=== PATIENT | female | born 1980 | race Caucasian/White ===

== ENCOUNTER 2017-12-12 08:30 | Outpatient (RCR) | payer OTHER, SELFPAY ==
--- NOTE | 2017-12-12 09:05 | BH.SGPN.GN ---
Behaviors/Verbalizations/Mental Status: [Client maintained fair eye contact -at times looking away, casually dressed, motor activity WNL, speech normal rate and tone though limited input provided, mood anxious, dysthymic, affect constricted, thoughts linear and logical, no evidence of delusions or hallucinations. Therapist reviewed clients symptom tracker to assess for intensity of mental health symptoms and identify risk for suicide. No signs of suicidal ideation, plan, or intent to date.] Client Response/Progress/Benefit: [Client receptive of session and willing to remain attentive throughout. She took on a passive participatory role as this was her first day in the IOP program and she was adjusting to the group treatment environment. Client appeared to benefit from the structured environment and shared experiences in struggling to manage mental health symptoms discussed by fellow participants. CLient indicated struggling most significantly with feeling overwhelmed and as though I just can't handle it all anymore however provided limited input due to it being her first day in the program and indicating feeling uncomfortable with sharing at this time. She is recommended continued IOP tx to prevent decompensation and begin to improve client insight and ability to manage emotions and improve mental health and well-being.] Narrative Note: []
--- NOTE | 2017-12-12 10:25 | BH.SGPN.GN ---
Behaviors/Verbalizations/Mental Status: [] Pt eye contact fair, casually dressed, motor activity appropriate, speech normal rate and tone, mood anxiety and dysthymic, congruent affect, thoughts linear and intact, no evidence of delusions or hallucinations. Client Response/Progress/Benefit: []Pt listened attentively to others and at times contributed her thoughts and ideas. Pt reported she recognizes her belief that she needs to fix everything and everyone often results in increased problems because others won't change unless want to change. Pt shared this belief results in increased agitation and struggles with using healthy coping to deal with her emotions. Pt reported her emotions are impacted by others words and actions, which results in shutting down as her form of coping. Pt seemed to benefit from increased awareness of how her current way of coping impacts her functioning. Pt first day in IOP which could have contributed to limited verbal contributions. Narrative Note: []
--- NOTE | 2017-12-12 11:25 | BH.SGPN.GN ---
Behaviors/Verbalizations/Mental Status: []Pt alert and oriented, casually dressed and groomed. Eye contact fair. Motor activity appropriate. Speech within normal limits. Affect congruent, mood euthymic. Thoughts linear, logical, no signs of hallucinations or delusions Client Response/Progress/Benefit: [] Pt responded well to session, taking notes and contributing. Group discussed the different categories of coping skills which included distraction, emotional release, grounding, self-love, and thought challenging.? Pt participated in creating a coping skills ?menu? from the five categories of coping skills. Pt's coping skill menu included: walking, breathing, self-care, look for evidence against, and wins journal. Appeared to benefit from increasing repertoire of healthy coping skills. Will continue IOP tx to prevent decompensation, challenge distortions, and improve healthy coping.
--- NOTE | 2017-12-12 15:18 | BH.DR.ITP ---
Initial Treatment Plan - Patient Information Visit Information: ADMISSION DATE: 12/12/2017 EXPECTED LOS: 4-6 weeks Diagnoses:: Major depressive disorder F 33.2 - Problems/Symptoms Problem #1:: Depression Symptom:: Sad mood, anhedonia, isolative behavior, crying, biologic disruption of sleep and appetite Problem #2:: anxiety Symptom:: Rumination, difficulty concentrating
--- NOTE | 2017-12-19 09:04 | BH.SGPN.GN ---
Behaviors/Verbalizations/Mental Status: [Client maintained good eye contact, casually and neatly dressed, well groomed, motor activity appropriate, speech normal rate and tone, mood irritable, affect constricted, thoughts linear and logical, no evidence of delusions or hallucinations. Reviewed client?s symptom tracker, no risk for suicidal ideation, plan, or intent as of 12/19/17.] Client Response/Progress/Benefit: [Client receptive of session, attentive throughout, provided limited input during personal process potion though providing supportive feedback to fellow participants. Indicated that his emotion for the day is annoyed as Client discussed ongoing issues with her family not respecting client boundaries and asking her to do things or for money. Client discussed guilt as she wants her great nieces to be well cared for but is agitated that her boundaries are not being adhered to. Client benefitted from venting with the group and suggestions provided regarding ways she may reinforce her boundaries while also communicating concern for great nieces. Client progress limited as she continues to report issues with mood dysregulation and negative thinking impacting her mental health. Continued IOP tx recommended to improve emotion regulation and use of thought challenge skills. ] Narrative Note: []
--- NOTE | 2017-12-21 08:16 | BH.MDN ---
Multi-Disciplinary Note - Note 45-min Individual Time Started:: 12:27 Date: 12/12/17 Purpose of session/treatment goals addressed:: Purpose of today's session was to establish rapport and assess Client adjustment to group setting as she is new to [facility] program. Another purpose was to gather additional information from the client about functioning and symptoms. Other topics including developing treatment goals and his progress in the program. Eye Contact:: Good Motor Activity:: Restless - moving a lot in her seat and speaking with multiple hand gestures. Appearance:: Casual Mood:: Anxious, Irritable, Dysthymic Affect:: Full Thoughts:: Linear, Logical, No evidence of hallucinations/delusions noted Staff Interventions:: Therapist used open ended questions to gather client's symptoms, current stressors, as well as hx of mental health treatment. Worked with client to explore treatment goals to address in [facility]. Client Response:: Client responded well to session and was engaged throughout. She openly discussed thoughts, feelings, and opinions with this therapist. CLient new to [facility] program and appears to be adjusting well. She indicated that her first day in the group setting had been a little overwhelming as she does not usually feel comfortable speaking in the larger group setting. However, went on to express that as she got used to the dynamics of the group she began to feel more comfortable. CLient current symptoms and stressors, as well as the events leading up to her admission to the IOP program. Client discussed that she has felt as though she is under constant stress which is beginning to impact her daily functioning, causing increased irritability, decreased focus, as well as some relationship tension. Client further explained a recent misunderstanding between her and her sister's which has put CLient in the middle. She Client indicated wanting to support her in this regard however fears she will then be unable to watch her great niece and nephew. Client identified watching her niece's children is really important to her as client has been struggling with infertility issues for the past year and is having a hard time dealing with the potential thought that she may be unable to have any children of her own. Client reports that she has found herself growing increasingly resentful towards the situation and is experiencing difficulties in managing her anger as a result. Client shared feeling as though she has lost myself and is finding herself isolating and shutting down more often. Client did well to work with therapist on identifying her goals and reviewing expectations for the treatment program. CLient indicates a desire to improve her ability to cope with current stressors, better manage her emotions, and set healthier boundaries with her supports. Risks/Concerns:: No risks or concerns noted. Denies any active sucidal ideations, plan, or intent as of 12/12/17. Client indicates her family as major motivations to live. Client indicates ability to maintain safety, aware of crisis resources, and willing to reach out should she feel unable to maintain safety. Progress Toward Goals/Plan:: Limited progress as Client first week in the program. Client indicates feeling as though she new she needed help and is glad to be in the program. Client indicates wanting to include improve healthy coping skills to better manage her emotions, improve communication and boundaries with supports, as well as increase her ability to manage stressors. Plan is to remain in IOP tx to prevent decompensation, stabilize mood, and improve levels of insight into mental health and symptom management. Time Stopped:: 13:07
--- NOTE | 2017-12-21 09:24 | BH.MDN_ITS ---
Multi-Disciplinary Note - Note 45-min Individual Time Started:: 12:27 Date: 12/12/17 Purpose of session/treatment goals addressed:: Purpose of today's session was to establish rapport and assess Client adjustment to group setting as she is new to [facility] program. Another purpose was to gather additional information from the client about functioning and symptoms. Other topics including developing treatment goals and his progress in the program. Eye Contact:: Good Motor Activity:: Restless - moving a lot in her seat and speaking with multiple hand gestures. Appearance:: Casual Mood:: Anxious, Irritable, Dysthymic Affect:: Full Thoughts:: Linear, Logical, No evidence of hallucinations/delusions noted Staff Interventions:: Therapist used open ended questions to gather client's symptoms, current stressors, as well as hx of mental health treatment. Worked with client to explore treatment goals to address in [facility]. Client Response:: Client responded well to session and was engaged throughout. She openly discussed thoughts, feelings, and opinions with this therapist. CLient new to [facility] program and appears to be adjusting well. She indicated that her first day in the group setting had been a little overwhelming as she does not usually feel comfortable speaking in the larger group setting. However, went on to express that as she got used to the dynamics of the group she began to feel more comfortable. CLient current symptoms and stressors, as well as the events leading up to her admission to the IOP program. Client discussed that she has felt as though she is under constant stress which is beginning to impact her daily functioning, causing increased irritability, decreased focus, as well as some relationship tension. Client further explained a recent misunderstanding between her and her sister's which has put CLient in the middle. She Client indicated wanting to support her in this regard however fears she will then be unable to watch her great niece and nephew. Client identified watching her niece's children is really important to her as client has been struggling with infertility issues for the past year and is having a hard time dealing with the potential thought that she may be unable to have any children of her own. Client reports that she has found herself growing increasingly resentful towards the situation and is experiencing difficulties in managing her anger as a result. Client shared feeling as though she has lost myself and is finding herself isolating and shutting down more often. Client did well to work with therapist on identifying her goals and reviewing expectations for the treatment program. CLient indicates a desire to improve her ability to cope with current stressors, better manage her emotions, and set healthier boundaries with her supports. Risks/Concerns:: No risks or concerns noted. Denies any active sucidal ideations , plan, or intent as of 12/12/17. Client indicates her family as major motivations to live. Client indicates ability to maintain safety, aware of crisis resources, and willing to reach out should she feel unable to maintain safety. Progress Toward Goals/Plan:: Limited progress as Client first week in the program. Client indicates feeling as though she new she ?needed help? and is glad to be in the program. Client indicates wanting to include improve healthy coping skills to better manage her emotions, improve communication and boundaries with supports, as well as increase her ability to manage stressors. Plan is to remain in IOP tx to prevent decompensation, stabilize mood, and improve levels of insight into mental health and symptom management. Time Stopped:: 13:07
== END 2017-12-12 23:59 ==
LOC: BHIOP 08:30
PROVIDERS: Family Provider Internal Medicine; PCP Internal Medicine; Visit Provider Psychiatry & Neurology Psychiatry
DX: F33.2 Major depressive disorder, recurrent severe without psychotic features (principal); F41.9 Anxiety disorder, unspecified
CPT/HCPCS: H0035; 90834; 90853

== ENCOUNTER 2017-12-14 09:00 | Outpatient (RCR) | payer OTHER, SELFPAY ==
--- NOTE | 2017-12-14 09:03 | BH.SGPN.GN ---
Behaviors/Verbalizations/Mental Status: []Pt alert and oriented. Casually dressed and appropriately groomed. Mood euthymic, affect congruent. Speech tone and rate WNL. Thoughts linear and logical. Motor activity appropriate. No evidence of delusions or hallucinations. Reviewed clients symptom tracker, no risk for suicidal ideation, plan, or intent as of 12/14/17. Client Response/Progress/Benefit: []Pt reported Monday I blew up at my 's brother, shared I lost it. Pt shared she needs to work on not allowing others behaviors and words impact her so much. Recognizes she tries to fix others, but needs to remember she needs to focus on herself and what is in her control. Progress noted with pt's increased insight into how her reactions negatively impact her. Pt to continue IOP level of care to improve mood stability, decrease agitation, and prevent decompensation. Narrative Note: []
--- NOTE | 2017-12-14 10:07 | BH.SGPN.GN ---
Behaviors/Verbalizations/Mental Status: []Client alert and oriented, neatly dressed and groomed. Eye contact good. Motor activity appropriate. Speech within normal limits. Affect full, mood euthymic, anxious. Thoughts linear, logical, no signs of hallucinations or delusions. Client Response/Progress/Benefit: []Client responded well to session, participating when prompted. Client connected with the quote sharing, I doubt myself which keeps me from doing things. Client defined failure as not meeting her expectations, which client shared can be unrealistic at times. Client stated fear of failure can come from cognitive distortions and insecurities. Client reported if one does not overcome fear of failure it can lead to increased mental health symptoms and keep a person stuck in negative maintenance cycles. 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 Client connected the activity to failures in life, sharing its okay to fail sometimes. Client appeared to benefit from increasing awareness of how fear of failure impacts mental health as well as gaining awareness of the negative self-talk she uses that reinforces fear of failure. Client seems to be progressing as shown by clients increased awareness. Client to continue IOP to increase emotional regulation and reduce mental health symptoms.
--- NOTE | 2017-12-14 11:15 | BH.SGPN.GN ---
Behaviors/Verbalizations/Mental Status: []Client alert and oriented, neatly dressed and groomed. Eye contact good. Motor activity appropriate. Speech within normal limits. Affect congruent, mood anxious. Thoughts linear, logical, no signs of hallucinations or delusions. Client Response/Progress/Benefit: []Client responded well to session, providing good insight to discussion. Client shared fear of failure has impacted client because client remembers past failures and then when faced with change feels scared and doubts herself. Client reported group today helped client realize the importance of self-encouragement and challenging self-doubting thoughts. Client shared fear of failure keeps her from returning to school as client views it scary and starting over. Client helped the group identify strategies to overcome fear of failure such as challenging distorted thoughts, being self-compassionate, and reaching out to supports. Client set a personal goal to reduce fear of failure through challenging her self-doubt and focusing on her positive achievements instead. Client appeared to benefit from gaining strategies to overcome fear of failure. Client seems to be progressing as shown by her increased participation and self-reflection in group. Client to continue IOP to increase mood stability and reduce negative thinking.
--- NOTE | 2017-12-15 10:41 | BH.NA_ITS ---
Current Medication Compliance - Medication Compliance Do you take your medication as prescribed?: Yes Do you need assistance with taking medication?: No Have you had side effects from medication?: No Nutritional History - Appetite Nutritional Instructions:: If client shows signs of a swallowing problem, weight change of 10 pounds or more in the last month, or is on a diabetic diet, the physician will review and request a dietitian consult, as appropriate. All unintentional weight loss will be referred to the physician for decision on need for dietitian consult. Describe your appetite:: Fair Have you noticed a change in your eating habits lately?: Yes - decreased since starting on Wellbutrin, but usually up w/ depressive sx Functional Assessment - Activities Motor Activity:: Functional Sensory/Communication Assess - Vision Problems Do you have any vision problems?: Glasses - Hearing Problems Do you have any hearing problems?: Adequate - Communication Problems Do you have difficulty understanding what people are saying?: No Do you have trouble putting your thoughts into words or expressing what you want to say?: No Do people ever have trouble understanding what you say?: No What is your primary language?: [place] Learning Assessment - Education What is your level of education?: Some College - Learning Barriers Learning Barriers:: Ready to learn Medical Problems/History - Cardiac Conditions Cardiovascular: Other (See comments) - mitral valve prolapse - Genitourinary Conditions Genitourinary: Other (See comments) - polycystic ovarian syndrome - Pain Assessment Do you have acute or chronic pain?: No - Female Reproductive Do you think you may be ?: No Number of pregnancies:: 0 Number of children:: 0 Have you reached menopause?: No Do you have any history of breast disease?: No Mental Status Summary - Mental Status Significant Findings/Observations on Appearance and Mood:: Client is A&Ox4, cooperative, good hygiene, and casual dress. Normal activity, good eye contact. Speech is clear and of regular rate and volume. Mild depression, anxiety, and anger. Full affect. Logical associations. Normal process. No symptoms of delusions. Past Psychiatric History - MH Treatment Hx Describe (age, circumstance, etc) any past hospitalizations: N/A Current providers for mental health treatment (counselor, psychiatrist, welfare case worker , etc.): Has never had any mental health treatment. Fall Risk Assessment - Age Age: Less than 60 - Mental Status Mental Status: Willing & able to ask for assistance when needed - Physical Status Physical Status: No problems - Impairments Impairments: None - Elimination Elimination: Continent AND independent - Gait or Balance Gait or Balance: Walks independently - Hx of Falls History of falls in the past 6 months: No known history - Medications/Substances Psychotropics:: Antidepressants Medications/substances used within the past 24 hours or ordered to administer: 1 -2 of the medications/substances listed above - Total Score Total Points:: 1 RN Summary of Impressions - Impressions Recommendations: Include psychiatric and medical issues, treatment planning recommendations, and discharge planning needs. Impressions: Psychiatric Issues: MDD, anxiety Impression: General Medical Conditions: PCOS, mitral valve prolapse - Level of Care How do the client's current symptoms and functional deficits support need for this level of care?: Client endorses inability to concentrate and memory problems that are interfering with her performing her work duties, which has caused her to have to take a medical leave. She describes multiple stressors with both her family and her 's family. She verbalizes anger and grief regarding her infertility. Client has been isolating from friends and family, wanting to not spend time with anyone other than her . She finds no pleasure or enjoyment in anything, has little motivation, and feels hopeless and frustrated. IOP will provide socialization, support, and promote gains while preventing further decompensation.
--- NOTE | 2017-12-15 11:27 | BH.SGPN.GN ---
Behaviors/Verbalizations/Mental Status: [Client alert and orient x3, maintained consistent eye contact throughout, casually dressed, motor activity within normal range. Speech appropriate rate and tone, mood dysthymic and anxious, congruent affect, thoughts linear and logical, no evidence of delusions or hallucinations.] Client Response/Progress/Benefit: [Positively responded to session and willing to engage throughout. CLient identified breaking larger goals down into smaller goals with concrete guidelines as helpful. Client went on to explain that she often becomes overwhelmed with large goals as they begin to feel unattainable. She appeared to benefit from working in smaller groups on identifying individual SMART goals each participant may utilize this weekend in order to begin improving overall mental health. Client expressed plans to work on decreasing anger outbursts by attempting to take a breath or walk away when feeling agitated. CLient displaying progress in overall levels of insight and indicated believing that this goal would help to decrease her anxiety and begin to improve her relationship with her . CLient recommended continued IOP tx to improve insight and understanding of mental health symptoms and management strategies as well as improve emotional stability.] Narrative Note: []
--- NOTE | 2017-12-15 13:23 | PCM.HP.BLA ---
History and Physical Identifying information Patient is a 37-year-old female who presents to the behavioral medicine [facility] with chief complaint of depression and anxiety and family stress.'' I internalize everything. History is been obtained per interview with patient, discussion with staff, review of chart. Case discussed with treatment team. History of present illness Patient is a 37-year-old female referred to the behavioral medicine [facility] by primary care physician Dr. Ortega for evaluation and treatment of depression and anxiety. Patient reports symptoms have been worse over the past 6 months are interfering with work functioning. She is currently on FMLA. She identifies recent stressors including infertility, family discord, and dynamics with her who has rigid thinking. She endorses depressed mood with feelings of sadness, crying spells, anhedonia, decreased energy, and difficulty concentrating. She reports associated irritability and anger. Ruminative anxiety about multiple issues. Reports difficulty making decisions. Denies panic attacks or OCD. Reports increased sleep. Sleeping from 11 PM to 8 AM. Napping 1 hour daily. Acknowledges emotional eating. Lost 80 pounds in 3 months with the assistance of [employer]ipe[employer]. Denies anorexia or bulimia. No suicidal or homicidal ideation. No previous self-harm. No hallucinations or symptoms consistent with psychosis. No symptoms consistent with hemalatha. Past psychiatric history Previously diagnosed with depression and anxiety. Treated with Prozac by her primary care physician in her mid 20s. Reports that she has been on Prozac since her mid 20s with the exception of a 2 year period of abstinence when she was undergoing infertility treatment. Resume Prozac year and a half ago. No previous suicide attempts or self-harm behaviors. Denies previous psychiatric hospitalization. Does not have a current psychiatrist or counselor. Substance use history Denies smoking cigarettes Consumes 2 alcoholic drinks once per year. Admits to binge drinking in her mid 20s to the point of blacking out. Denies illicit drug use Denies caffeine ingestion Past medical history Migraines Cervical fusion Tachycardia-status post EP study PCO S Denies seizure or head injury [id number] Current medications Prozac 20 mg daily Wellbutrin-? XL 150 mg?-Started last week Toprol Aldactone Benadryl as needed nightly Family medical psychiatric history Mother-anxiety Maternal aunt-depression Maternal cousin-schizophrenia Nephew-anxiety Knees-bipolar Paternal aunt completed suicide by insulin overdose 3 paternal aunts and 1 paternal uncle with depression Developmental social history Patient was born and raised in [place]. Youngest of 2 children. 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 States she had a wonderful childhood. Father was rigid. Graduated high school. 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 2 years college at [employer]. 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 Lives in [place] with and dogs. Legal history-none Mental status exam Vital signs discussed with nursing Alert and oriented . No acute distress. Ambulatory with normal gait and station. Appears stated age. Casually dressed and groomed. Appropriate hygiene. Cooperative with interview. Good eye contact. No psychomotor agitation or retardation. Mood depressed. Affect congruent. Speech is clear and with regular rate and rhythm. Language fluent. Thought process organized. Associations logical. Thought content significant for ruminative anxiety and themes of depression. No suicidal or homicidal ideation related or detected.. No symptoms consistent with psychosis noted or detected. Immediate recent and remote memory grossly intact. Attention and concentration are fair. Estimated intelligence and fund of knowledge average. Judgment and insight fair. Labs Lab work will be requested from primary care physician. Patient reports TSH within last year normal. Further lab work will be obtained as needed. Diagnosis Major depressive disorder recurrent severe F 33.2 Anxiety unspecified Tachycardia PCO S Migraines Plan Admit to IOP as the structured setting is necessary to prevent decompensation. Risk-benefit alternative of medications discussed with patient. Patient acknowledges understanding. Continue Prozac 20 mg daily. Continue Wellbutrin XL 150 mg daily. Patient acknowledges understanding of risks of increased tachycardia with Wellbutrin. Patient reports she is currently tolerating Wellbutrin without difficulty. Denies history of seizure. Feels Wellbutrin is helpful for appetite reduction. Encouraged to establish with outpatient psychiatric providers for when IOP complete. Patient acknowledges understanding and is in agreement with plan. Feels able to maintain safety. Agrees to seek help or emergency care if feeling unsafe to self or others.
--- NOTE | 2017-12-15 13:37 | HP.PCM_ITS ---
History and Physical Identifying information Patient is a 37-year-old female who presents to the behavioral medicine [facility] with chief complaint of depression and anxiety and family stress.'' I internalize everything. History is been obtained per interview with patient, discussion with staff, review of chart. Case discussed with treatment team. History of present illness Patient is a 37-year-old female referred to the behavioral medicine [facility] by primary care physician Dr. Ortega for evaluation and treatment of depression and anxiety. Patient reports symptoms have been worse over the past 6 months are interfering with work functioning. She is currently on FMLA. She identifies recent stressors including infertility, family discord, and dynamics with her who has rigid thinking. She endorses depressed mood with feelings of sadness, crying spells, anhedonia, decreased energy, and difficulty concentrating. She reports associated irritability and anger. Ruminative anxiety about multiple issues. Reports difficulty making decisions. Denies panic attacks or OCD. Reports increased sleep. Sleeping from 11 PM to 8 AM. Napping 1 hour daily. Acknowledges emotional eating. Lost 80 pounds in 3 months with the assistance of [employer]. Denies anorexia or bulimia. No suicidal or homicidal ideation. No previous self-harm. No hallucinations or symptoms consistent with psychosis. No symptoms consistent with hemalatha. Past psychiatric history Previously diagnosed with depression and anxiety. Treated with Prozac by her primary care physician in her mid 20s. Reports that she has been on Prozac since her mid 20s with the exception of a 2 year period of abstinence when she was undergoing infertility treatment. Resume Prozac year and a half ago. No previous suicide attempts or self-harm behaviors. Denies previous psychiatric hospitalization. Does not have a current psychiatrist or counselor. Substance use history Denies smoking cigarettes Consumes 2 alcoholic drinks once per year. Admits to binge drinking in her mid 20s to the point of blacking out. Denies illicit drug use Denies caffeine ingestion Past medical history Migraines Cervical fusion Tachycardia-status post EP study PCO S Denies seizure or head injury [id number] Current medications Prozac 20 mg daily Wellbutrin-? XL 150 mg?-Started last week Toprol Aldactone Benadryl as needed nightly Family medical psychiatric history Mother-anxiety Maternal aunt-depression Maternal cousin-schizophrenia Nephew-anxiety Knees-bipolar Paternal aunt completed suicide by insulin overdose 3 paternal aunts and 1 paternal uncle with depression Developmental social history Patient was born and raised in [place]. Youngest of 2 children. 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 States she had a wonderful childhood. Father was rigid. Graduated high school. 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 2 years college at [employer]. 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 Lives in [place] with and dogs. Legal history-none Mental status exam Vital signs discussed with nursing Alert and oriented . No acute distress. Ambulatory with normal gait and station. Appears stated age. Casually dressed and groomed. Appropriate hygiene. Cooperative with interview. Good eye contact. No psychomotor agitation or retardation. Mood depressed. Affect congruent. Speech is clear and with regular rate and rhythm. Language fluent. Thought process organized. Associations logical. Thought content significant for ruminative anxiety and themes of depression. No suicidal or homicidal ideation related or detected.. No symptoms consistent with psychosis noted or detected. Immediate recent and remote memory grossly intact. Attention and concentration are fair. Estimated intelligence and fund of knowledge average. Judgment and insight fair. Labs Lab work will be requested from primary care physician. Patient reports TSH within last year normal. Further lab work will be obtained as needed. Diagnosis Major depressive disorder recurrent severe F 33.2 Anxiety unspecified Tachycardia PCO S Migraines Plan Admit to IOP as the structured setting is necessary to prevent decompensation. Risk-benefit alternative of medications discussed with patient. Patient acknowledges understanding. Continue Prozac 20 mg daily. Continue Wellbutrin XL 150 mg daily. Patient acknowledges understanding of risks of increased tachycardia with Wellbutrin. Patient reports she is currently tolerating Wellbutrin without difficulty. Denies history of seizure. Feels Wellbutrin is helpful for appetite reduction. Encouraged to establish with outpatient psychiatric providers for when IOP complete. Patient acknowledges understanding and is in agreement with plan. Feels able to maintain safety. Agrees to seek help or emergency care if feeling unsafe to self or others.
--- NOTE | 2017-12-15 13:39 | BH.DR.ITP ---
Initial Treatment Plan - Patient Information Visit Information: ADMISSION DATE: EXPECTED LOS: 4-6 weeks Diagnoses:: Major depressive disorder F 33.2 - Problems/Symptoms Problem #1:: Depression Symptom:: Sad mood, anhedonia, isolative behavior, crying, biologic disruption of sleep and appetite Problem #2:: anxiety Symptom:: Rumination, difficulty concentrating
--- NOTE | 2017-12-15 14:38 | BH.PSA ---
Source of Information - Presenting Problems/Circumstances Problems, Referral Source, Mental Status, Client: Client is a 37-year-old female referred to the behavioral medicine [facility] by primary care physician Dr. Ortega due to increased symptoms of anxiety and depression due to increased familial and occupational stressors. CLient alert and orient x3, appropriate grooming and hygiene, no SI/HI plan or intent expressed. CLient receptive of interview. Thoughts appearing linear and logical. Psychiatric Presentation - Psych Issues & Need for Admission Psychiatric Issues:: Major depressive disorder recurrent severe F 33.2, Anxiety unspecified, Tachycardia, PCOS, Migraines Past Psychiatric History - Treatment Hx Treatment History: Client denies previous counseling or psychiatry services. She reports being diagnosed with anxiety and depression in her 20's. She has been treated with Prozac since her mid 20s with the exception of a 2 year period of abstinence when she was undergoing infertility treatment. Resume Prozac year and a half ago. Client denies previous psychiatric hospitalization or suicidal ideation. She does not have a current outpatient psychiatrist or counselor at this time. First hospitalization:: Denies Most recent hospitalization:: Denies Medication Trials:: No ECT Therapy:: No Age of first mental health symptoms: Client reports first experiencing mental health symptoms of anxiety and depression in her early 20's. Describe (age, circumstance, etc) any past hospitalizations: Denies past psychiatric hospitalization. Current providers for mental health treatment (counselor, psychiatrist, behavioral health case manager, etc.): Client denies any current outpatient counseling or psychiatry at this time. CLient will be referred for outpatient services prior to discharge. Development & Family of Origin - Childhood Significant Childhood Events: Client describes her childhood at wonderful however indicates that her father could be very strict or rigid about his expectations which created some emotional distance from him growing up. - Family Who currently lives in your home?: Client lives in her own home with her and two dogs. Describe family composition:: Client is the youngest of 2 children. She has an older sister whom she reports is toxic and uses me for everything. Client indicates being close with her mother and getting along with her father. Client reports relationship tension with her as she describes him as rigid and not understanding of her mental health needs. - Family History Family Hx of Psychiatric or AOD Problems: Mother-anxiety. Maternal aunt-depression. Maternal cousin-schizophrenia. Nephew-anxiety. Niece-bipolar. Paternal aunt completed suicide by insulin overdose. 3 paternal aunts and 1 paternal uncle with depression Ethnicity - Culture Do you identify yourself with any particular cultural, ethnic background, or community?: No - Sexuality Sexual Orientation: Heterosexual Spirituality - Amish Do you currently identify with any organized mormon?: None - Beliefs Is there a particular form of support from this community you can use for your recovery?: No Mental Status - Memory Recent Memory: Good Remote Memory: Good - Concentration Concentration: Good - Eye Contact Eye Contact: Good - Speech Speech: Articulate, Congruent - Thought Process Thought Process: Logical Insight: Fair Judgment: Fair Behavior: Anxious - Orientation Orientation: Time, Person, Place, Situation - Appearance Appearance: Appropriate - Mood Mood: Anxious, Depressed - Affect Affect: Appropriate/calm Suicide Assessment - Suicidal Ideation Have you ever felt like hurting yourself?: No Were you using ETOH/drugs at the time?: No Suicidal Intentional Rating Scale (SIRS): No suicidal thoughts (past or present) Physician Notification: If Active suicidal thoughts/Will not contract for safety is checked, contact physician and document in the Physician Notification section below. Violent Behavior/Abuse History - Homicidal Ideation Do you have any homicidal thoughts? If so, explain:: No Is there a known potential victim? If yes, who:: No - Abuse Have you ever been abused?: No Please explain:: Client reports father was rigid and emotionally distant growing up but denies any abuse. - Life Events Are there any other significant life events?: Hardships - Client struggling with infertility which has had significant impact on mental health Describe significant life events: infertility, increased caregiver responsibilities for aging parents - Safety Do you ever feel threatened in your home? If yes, describe:: No Adult Social History - Age 18 to Present Describe your current support system:: Client identifies current supports as her , mother, and sister; however, reports that these supports can also be stressors due to unhealthy boundaries and poor communication. Substance Use - Substance Substance Use Type: Alcohol - Consumes 2 alcoholic drinks once per year. Admits to binge drinking in her mid 20s to the point of blacking out. - Specific Drugs What specific drugs have you used?: Alcohol - Extent of Use What quantity of substances have you used?: Consumes 2 alcoholic drinks once per year. Admits to binge drinking in her mid 20s to the point of blacking out. - Duration of Use How long have you used substances?: Reports she began drinking in early 20's and currently drinks ~2 alcoholic beverages twice a year. - Last Usage What is the date and situation you last used?: Unknown. Client did not report last known use. - IV Substance Use Do you have a history of IV use?: Denies Leisure/Social Activities - Interests What do you enjoy or might be interested in learning about?: Client reports enjoying spending time with her great nieces and being outdoors. She additionally indicates enjoying reading. CLient identifies wanting too learn how to better manage symptoms of irritability and anxiety in order to improve overall mental health and functioning. 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 List any previous volunteering you may have done:: None reported Service - Service Have you ever been in the ?: No Legal History - Records Have you had any past legal charges?: No Do you have any current legal charges?: No Have you ever been incarcerated? If yes, describe:: No - Court Orders Have you had any past court orders for psychiatric treatment?: No Do you have a present court order for psychiatric treatment?: No Problem Checklist - Current Problem Areas Problem List: Nutritional/Eating pattern changes - reports emotional eating and recently lost 80 pounds in three months with the assistance of [employer]., Pain management - associated with chronic back pain, Depressed mood/sad, Anxiety, Anger/aggression, Sleep problems - increased stress, Pertinent health issues - infertility, Additional psychosocial stressors - Reports increased familial conflict Discharge Planning Needs - Anticipated Follow-Up Private Therapist/Psychiatrist:: Will be referred to outpatient counseling services prior to discharge Primary Care Physician: Trinidad Antunez Family and Caregiver Contacts:: Angy Miller, Sister -[phone] Release of Information Signed:: Yes Assistant Professor Of Archaeology's Assessment - Client's Needs What are the client's feelings about the program?: Client reports looking forward to gaining skills to improve ability to manage symptoms of irritability and depression through IOP program. She indicates looking forward to the group experience and connecting with fellow participants who may be experiencing similar symptoms. What are the client's goals?: Client reports current goal of improving management of mental health symptoms of depression, anxiety, and irritability by increase use of health coping mechanisms, improving communication, and setting healthy boundaries. What are the client's strengths?: Client appears motivated to improve mental health symptpms and make progress in treatment, she is resilient, intelligent, and open to trying new means of coping with current symptoms Diagnoses - Diagnoses Diagnosis #1:: Major Depressive Disorder F33.2 Diagnosis #2:: Anxiety, unspecified Diagnosis #3:: PCOS Diagnosis #4:: Migraines Interpretive Summary - Interpretive Summary Interpretive Summary: Client is a 37-year-old female referred to the behavioral medicine IOP by primary care physician Dr. Ortega due to increased symptoms of anxiety and depression. Client reports symptoms have been worsening over the past 6 months resulting in decreased ability to function at baseline and difficulties completing occupational duties. Client currently on FMLA from work. Client attributes increased symptoms stemming from recent stressors including infertility, family discord, and relationship discord with her who she reports has rigid thinking. At time of intake client is endorsing a depressed mood with feelings of sadness, crying spells, anhedonia, decreased energy, and difficulty concentrating. She reports secondary emotions associated including irritability and anger, as well as ruminative anxiety about multiple issues, and difficulty making decisions. Client additionally indicates increased sleep and emotional eating to cope. Client reports a family history of depression, anxiety, bipolr, and schitzophrenia. Denies HI or psychosis. Denies previous or current SI. No hx of attempts Based on worsening depression and anxiety sx, increased familial tension, psychosocial and occupational stressors, decreased functioning at baseline, and isolative behaviors she is recommended [facility] level of care at this time. Treatment Plan Recommendations - Recommendations Guidelines: Special needs identified to be included in the development of an individualized treatment plan regarding past psychiatric history and treatment, developmental events, family relationships/events/culture, past and/or current educational, occupational, social, and residential experience, and legal status. Recommendations:: Based on worsening depression and anxiety sx, increased familial tension, psychosocial and occupational stressors, decreased functioning at baseline, and isolative behaviors she is recommended [facility] level of care at this time. To be referred to outpatient counseling and psychiatry services prior to discharge.
--- NOTE | 2017-12-15 14:46 | BH.MTP ---
Master Treatment Plan - Patient Information Program Physician:: Sharmin Lovett Primary Therapist:: Rut Oseguera - Psychiatric Diagnoses Psychiatric Diagnoses:: Major depressive disorder recurrent severe F 33.2. Anxiety unspecified. Tachycardia. PCO S. Migraines Diagnosis Code(s):: F 33.2 - Estimated LOS Estimated LOS (in weeks):: 6 Problem/Goal #1 - Problem/Goal #1 Stated Goal:: Client will decrease depressive symptoms, uncontrolled crying, isolation, irritability, and anhedonia due to Major Depressive Disorder through Intensive Outpatient Program and as evidenced by a reduction of Client scores in the depression portions of DSM-5 Cross Cutting Depression Inventory. Description of Barriers: Client identifies that her major stressor and potential barrier in managing mental health sx is poor emotional boundaries with her family and outside supports. She identified additional psychosocial stressors potentially impacting her treatment progress as difficulty in regulating her emotions -specifically that of anger and irritability, taking on too many responsibilities caregiving for great niece and nephew as well as her parents at times, struggling to cope with possible infertility causing jealousy/resentment, lack of understanding from supports, and ongoing conflict/tension between various members of the family. Client does however appear to have good insight into warning signs and triggers as well as what strategies may potentially be helpful such as improving boundaries and communication however struggles with implementation of such. Functional Impact: At admission, client reported a history of depression, anxiety, and difficulty managing emotions, with symptoms worsening over the past six months following a failed Clomid trial. Client reports current symptoms have led client to experience difficulties in concentrating, increased crying spells, increased sleeping, feeling overwhelmed, isolation, rumination, irritability, increased appetite. Client indicates current difficulties in function at baseline have resulted in ongoing relationship tension with her as well as her extended family and led Client to take FMLA from her current job. Client also reported ongoing stressors of infertility, porous boundaries, and caregiver burnout associated with watching her nieces children. Client endorses numerous distorted thinking patterns associated with personalization and use of unrealistic expectations of self and others, as well as rumination and increased negative self-talk. Goal Relevant Strengths/Supports: Client is independent, aware of her wants and needs for treatment, resilient, intelligent, and appears highly motivated to make changes to benefit her mental health. She presents with an understanding of some of her own triggers, and unhealthy means of emotional management. Client reports her can be a positive mental health support but that she also has supportive friends in the area. Client is medication compliant and reports being health conscious. 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 - Objectives Objective #1 Stated Objective: Client will identify and replace 2-3 negative thinking patterns that mediate feelings of negative self-worth, sadness, and negative core beliefs to reduce depressive symptoms as shown by a reduced score in section I of the DSM-5 cross-cutting measure. Interventions: Therapist will work collaboratively client in improving awareness of the messages and negative self-talk that reinforce depressive or resentful thinking. Therapist will also assist client in challenging, reframing, and replacing negative thinking patterns. Therapist will provide psychoeducation on depression and help client increase awareness of warning signs and triggers. Discharge Criteria: Client will have achieved this goal when can identify at least 2 negative thinking patterns, replace negative thinking with more positive, affirmative messages and shown a reduction in DSM-5 cross-cutting symptom measure score. Target Date: 01/23/18 Review Date: 01/09/18 Objective #2 Stated Objective: Client will identify 2-3 triggers and 2-3 new ways to navigate stressful situations or manage negative thoughts caused by depression often resulting in secondary emotion of irritability and leading to emotional outburst. This is evidenced by a reduction of DSM-5 cross cutting symptom measure scores. Interventions: Therapist will provide psychoeducation regarding depression and the connection between depression and secondary emotions such as irritability. Therapist will use motivational interviewing to aide client in identifying healthy coping mechanisms to use during times of increased stress and depressive symptoms in order to improve overall emotion regulation and decrease irritability. Discharge Criteria: Client will have accomplished this goal when she can report at least 2 triggers for irritability, as well as identify improved emotion regulation through use of at least 2 calming strategies or distress tolerance skills. Target Date: 01/23/18 Review Date: 01/09/18 Problem/Goal #2 - Problem/Goal #2 Stated Goal:: Client will decrease ruminating thoughts which cause anxiety and difficulties with concentrating as evidenced by a reduction of Client scores in the anxiety and irritability portions of DSM-5 Cross Cutting Depression Inventory. Description of Barriers: Client identifies that her major stressor and potential barrier in managing mental health sx is poor emotional boundaries with her family and outside supports. She identified additional psychosocial stressors potentially impacting her treatment progress as difficulty in regulating her emotions -specifically that of anger and irritability, taking on too many responsibilities caregiving for great niece and nephew as well as her parents at times, struggling to cope with possible infertility causing jealousy/resentment, lack of understanding from supports, and ongoing conflict/tension between various members of the family. Client does however appear to have good insight into warning signs and triggers as well as what strategies may potentially be helpful such as improving boundaries and communication however struggles with implementation of such. Functional Impact: At admission, client reported a history of depression, anxiety, and difficulty managing emotions, with symptoms worsening over the past six months following a failed Clomid trial. Client reports current symptoms have led client to experience difficulties in concentrating, increased crying spells, increased sleeping, feeling overwhelmed, isolation, rumination, irritability, increased appetite. Client indicates current difficulties in function at baseline have resulted in ongoing relationship tension with her as well as her extended family and led Client to take FMLA from her current job. Client also reported ongoing stressors of infertility, porous boundaries, and caregiver burnout associated with watching her nieces children. Client endorses numerous distorted thinking patterns associated with personalization and use of unrealistic expectations of self and others, as well as rumination and increased negative self-talk. Goal Relevant Strengths/Supports: Client is independent, aware of her wants and needs for treatment, resilient, intelligent, and appears highly motivated to make changes to benefit her mental health. She presents with an understanding of some of her own triggers, and unhealthy means of emotional management. Client reports her can be a positive mental health support but that she also has supportive friends in the area. Client is medication compliant and reports being health conscious. 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 - Objectives Objective #1 Stated Objective: Client will identify 2-3 cognitive distortions or mistaken beliefs that lead to rumination and learn 2-3 ways to manage these thoughts to reduce anxiety as evidenced by a reduction of DSM-5 cross cutting symptom measure scores. Interventions: Therapist will provide psychoeducation on cognitive distortions and the connection between thoughts, emotions, and feelings. Therapist will aid client in identifying, challenging, and replacing unhelpful or distorted thoughts with positive, more realistic thoughts. Therapist will use CBT and DBT techniques to help client gain awareness of thinking errors and learn how to more effectively manage negative thoughts. Discharge Criteria: Client will have accomplished this goal when can identify at least 2 cognitive distortions and at least 2 coping skills to manage negative thoughts. Client will also be able to report a reduction of anxiety symptoms in section IV on the DSM-5 symptom measure. Target Date: 01/23/18 Review Date: 01/09/18 Objective #2 Stated Objective: Client will identify 2-3 internal coping strategies rather than external solutions to manage anxiety as evidenced by a reduction of DSM-5 cross cutting symptom measure scores. Interventions: Therapist will help client develop insight into anxiety and irritability triggers and educate client on the ways anxiety impacts overall health. Therapist will teach client various calming strategies to promote emotional regulation and reduction of anxiety. Therapist will discuss the importance of self-care to avoid burnout and reduce stress while helping client establish clearer boundaries for self-care with supports. Discharge Criteria: Client will have achieved this objective when she can identify at least 2 triggers for anxiety and utilize at least 2 internal coping mechanisms to manage anxiety in order to decrease ruminating thoughts causing anxiety. Target Date: 01/23/18 Review Date: 01/09/18
--- NOTE | 2017-12-19 10:23 | BH.SGPN.GN ---
Behaviors/Verbalizations/Mental Status: []Client alert and oriented, neatly dressed and groomed. Eye contact good. Motor activity appropriate. Speech within normal limits. Affect congruent, mood irritable. Thoughts linear, logical, no signs of hallucinations or delusions. Client Response/Progress/Benefit: []Client responded well to session, providing good insight to discussion. Client connected with the quote sharing I tend to dwell on the past letting that affect my present and future. Client shared that negative thinking, anxiety, and fear of failure can keep people stuck from obtaining mental wellness. Client stated change is important because without it, nothing may improve. Client identified personal changes she would like to make this week to improve her mental health such as say no without guilt, communicate more with her , and manage irritation better. Client identified her barriers to be negative self-talk, motivation, and time. Client shared this would improve her mood and help her relationships. Client appeared to benefit from identifying goals for the week and gaining awareness of her barriers. Client to continue IOP to increase healthy coping skills and improve emotional regulation skills.
--- NOTE | 2017-12-19 11:25 | BH.SGPN.GN ---
Behaviors/Verbalizations/Mental Status: []Client alert and oriented, neatly dressed and groomed. Eye contact good. Motor activity appropriate. Speech within normal limits. Affect constricted, mood irritable. Thoughts linear, logical, no signs of hallucinations or delusions. Client Response/Progress/Benefit: []Client responded well to session, contributing positively to discussion. Client identified her goal for the week to be making time after work to increase communication with her . Client shared her personal barriers are desire, time, and exhaustion. Client helped the group identify solutions to overcome barriers such as creating a schedule, reminding herself of the positives of communication, and challenging negative thoughts. Client appeared to benefit from identifying solutions to her barriers. Client seems to be progressing with increasing mental health awareness, but continues to struggle with implementation and emotional regulation skills. Client to continue IOP to prevent decompensation and increase mood stability.
--- NOTE | 2017-12-19 13:54 | BH.COMM ---
Communication Note - Communication with Client Communication Note: Client scheduled for IOP group and to meet with this therapist for individual session on this date owever chancelled due to having a migraine. Therapist will follow-up on Client next sheduled date, 12/22/17
--- NOTE | 2017-12-22 13:57 | BH.COMM ---
Communication Note - Communication with Client Communication Note: Client scheduled for IOP group and to meet with this therapist for individual session on this date, as she had not been able to attend previously scheduled appointment; however, cancelled due to a scheduling conflict with another appointment Therapist will follow-up with Client next sheduled group date, 12/26/17
--- NOTE | 2017-12-26 09:03 | BH.SGPN.GN ---
Behaviors/Verbalizations/Mental Status: [Client maintained consistent eye contact, casually and comfortably dressed -well-kempt, motor activity appearing tense/rigid in movement due to a described back injury, speech normal rate and tone, mood dysthymic, irritable expressed as uncomfortable, affect constricted, thoughts linear and logical, no evidence of delusions or hallucinations. Therapist reviewed client?s symptom tracker to assess for intensity of mental health symptoms and identify risk for suicide. No signs of suicidal ideation, plan, or intent to date.] Client Response/Progress/Benefit: [Client open to session and willingly participated throughout. She took on a more passive role as fellow participants shared their own progress with the group; however, did well to provide input when her turn to process. Client discussed physically uncomfortable and in pain which she has noticed in contributing to increased irritability and agitation. CLient indicated feeling frustrated that she struggles with back pain and has limited relief as this can at times be very limiting and socially isolating. She appeared to benefit from the opportunity to voice her frustrations and seek emotional release in a supportive environment. Client is gaining improved awareness into her mental health symptoms and means for better managing times of increased stress; however continues to experience significant difficulties implementing consistent boundaries with supports as well as identifying ways in which she can improve communication with supports. CLient recommended continued IOP treatment to further improve identification of distorted thinking patterns, increase insight regarding client externalization of control, as well as improve consistent application of emotion regulation and stress management skills identified.] Narrative Note: []
--- NOTE | 2017-12-26 10:10 | BH.SGPN.GN ---
Behaviors/Verbalizations/Mental Status: []Client alert and oriented, neatly dressed and groomed. Eye contact good. Motor activity slowed-reporting back pain. Speech within normal limits. Affect constricted, mood irritable. Thoughts linear, logical, no signs of hallucinations or delusions. Client Response/Progress/Benefit: []Client responded well to session, positively contributing to discussion. Client connected with the quote sharing, you have to face problems to solve them, but fear keeps us from facing problems. Client discussed the components of problems with the group and identified barriers that keep people from solving problems such as lack of resources, anxiety, and fear. Client helped the group identify the ABCDEs of problem solving, which included various techniques to increase problem solving skills. Client was unable to engage in the activity due to issues with her back, but she provided ideas and positive support to peers. Client appeared to benefit from gaining awareness of the components of problems and increasing awareness of the positive and negative ways client approaches problems in her life. Client progressing with gaining awareness, but continues to struggle with managing anger. Client to continue IOP to prevent decompensation and increase emotional regulation.
--- NOTE | 2017-12-26 13:50 | BH.MDN ---
Multi-Disciplinary Note - Note 60-min Individual Time Started:: 11:17 Date: 12/26/17 Purpose of session/treatment goals addressed:: The purpose of this session was to assess Client current symptom management, stressors, and treatment progress. Another purpose was to discuss with client healthy boundaries and the impact current boundaries have on client mental health, as well as strategies for improving boundaries with supports as a means of self-care. Additional topics included: emotion regulation, communication, and introduction to decisional balance. Eye Contact:: Good Motor Activity:: Appropriate Appearance:: Casual Speech:: Appropriate Mood:: Irritable, Dysthymic, Other - expressed feeling uncomfortable and agitated due to hurting her back over the weekend and being in pain Affect:: Congruent Thoughts:: Linear, Logical, No evidence of hallucinations/delusions noted Staff Interventions:: Therapist used open-ended questions to explore client's current stressors and concerns, as well as review progress in treatment so far. Reviewed with client the anger management strategies she has been using to promote emotion regulation. Therapist provided psychoeducation regarding healthy boundaries aided client in identifying her own unhealthy boundaries. Used PR techniques to assist client in establishing a small goal to work towards improving her own boundaries. Provided information on decisional balance approach to making difficult choices and encouraged client to begin improving communication with supports. Client Response:: Client receptive of meet with this therapist for session and responded well to content discussed. She shared struggling the past few days as she has beed experiencing increased irritability and agitation due to pain related to injuring her back over the weekend. Client discussed trying to take it easy and find low intensity things she can do to cope while her back recovers. Client indicated that she had spend the day laying out at her camper on monday which had been helpful to give herself a break from everything and relax. CLient went on to discuss that her primary stressors are related to difficulty establishing healthy boundaries with her family. She went on to explain that she often finds herself ruminating on her sister and niece's behaviors and problems and then becomes increasingly angry and agitated as a result. Client displays insight into how she may begin to improve current emotion regulation skills and indicated I've been working on recognizing ny reaction to things which has helped me with figuring out what I need to do to manage. She went on to describe identifying that currently her biggest problem is learning to set boundaries with family. She discussed identifying that she harbors a lot of on resolved resentment towards her sister which client attributes to her sister's struggles in parenting. Client able to recognize that her current boundaries with her sister and niece may not be healthy due to client currently still processing her own emotions related to previous infertility treatments. 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 Client went on to discuss increased stress and fear related to not knowing if she wants to continue to pursue parenting using another method or how her feels about this topic. CLient receptive of using the decisional balance technique to analyze the pros/cons of various avenues and discussing this with her in order for them to move forward or find closure. Risks/Concerns:: No risks or concerns noted. Client denies suicidal ideation, plan, and intent as of 12/26/17. She is future oriented discussing a potential new job she will be taking and is aware of and willing to utilize the local crisis resources available if feeling unable to maintain safety at anytime. Progress Toward Goals/Plan:: Progress made. Client expresses feeling as though she has begun to make progress in her ability to identify triggers for irritability and common reactions or behaviors she uses in reaction to irritability. CLient indicates working on applying radical acceptance and thought challenging strategies during those times. She shared that she often tells herself this isn't workth your time or energy or this isn't your problem. CLient additionally expressed feeling less irritable lately to which she attributes to medication changes. Client continues to struggle with distorted thinking patterns and use of personalization, which negatively impacts her depression management and communication with supports. Client recommended continued IOP treatment to improve understanding of mental health symptoms and effective strategies for better managing them as well as increase communication with supports in order to continue to maintain stability and prevent client from decompensating.
--- NOTE | 2017-12-29 09:05 | BH.SGPN.GN ---
Behaviors/Verbalizations/Mental Status: []Client alert and oriented, neatly dressed and groomed. Eye contact good. Motor activity slowed- reporting back pain. Speech within normal limits. Affect congruent, mood euthymic, irritable. Thoughts linear, logical, no signs of hallucinations or delusions. Reviewed clients symptom tracker, no risk for suicidal ideation, plan, or intent as of 12/29/17. Client Response/Progress/Benefit: []Client responded well to session, providing good insight. Client reports feeling happy but in pain as client continues to experience back and neck pains since the weekend. Client shared she has been irritated with her because per clients report he does not believe in taking medication or going to the doctors he has been calling me a wusshe just doesnt get it. Client appeared to have responded well to her husbands remarks stating she did not argue I just let it go. Client recognized physical discomfort can exacerbate mental health symptoms, so client reports plan to rest and use self-care this week. Client shared she also plans to watch her niece which client is looking forward to. Client appeared to benefit from gaining support from peers and reflecting on the positive ways she coped with her anger. Client to continue IOP as she can continue to increase emotional regulation and mood stability.
--- NOTE | 2017-12-29 11:10 | BH.SGPN.GN ---
Behaviors/Verbalizations/Mental Status: []Client alert and oriented, neatly dressed and groomed. Eye contact good. Motor activity appropriate. Speech within normal limits. Affect congruent, mood euthymic, irritable. Thoughts linear, logical, no signs of hallucinations or delusions. Client Response/Progress/Benefit: []Pt contributed positively to discussion and attentive to others. Pt reported barriers to her desired reality include: time, family discord, no support, no desire to change, and negative thinking. Pt identified her family discord to be the most impactful barrier currently because the negativity of others has a significant impact on her functioning and makes it hard to do anything productive. Pt seemed to benefit from group brainstorming various strategies and skills that can help overcome identified barriers by group. Pt reported her goal is to work on communicating to her family her concerns in a effective and calm manner. Narrative Note: []
--- NOTE | 2017-12-29 11:42 | PCM.PN.BLA ---
Progress Note Patient is seen in follow-up for major depressive disorder recurrent severe F 33.2, anxiety unspecified. History is been obtained per interview with patient, discussion with staff, review of chart. Case discussed with treatment team. Chief complaint-depression and anxiety Interim history Moderate depressive symptoms persist but of decreased intensity over the last 2 weeks. Patient reports that overall her mood is better. She reports increased energy and decreased irritability. She attributes improvement to medication and use of coping skills gained through IOP. She reports she has been boundary setting with her family and has been making efforts not to over think. She continues to have ruminative anxiety but of decreased intensity. 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 No suicidal or homicidal ideation. No symptoms consistent with psychosis. She is sleeping from 11 PM to 8 AM. She is taking a 2 hour nap daily. Appetite normal. Denies nausea vomiting or diarrhea. Compliant with medications including Prozac 20 mg daily and Wellbutrin XL 150 mg daily. Denies history of seizures. Denies recent ingestion of alcohol Mental status exam Alert and oriented . No acute distress. Ambulatory with normal gait and station. Appears stated age. Casually dressed and groomed. Appropriate hygiene. Cooperative with interview. Good eye contact. No psychomotor agitation or retardation. Mood depressed but improved. Affect congruent. Speech is clear and with regular rate and rhythm. Language fluent. Thought process organized. Associations logical. Thought content significant for ruminative anxiety and themes of depression. No suicidal or homicidal ideation related or detected. No symptoms consistent with psychosis noted or detected. Immediate recent and remote memory grossly intact. Attention and concentration are fair. Estimated intelligence and fund of knowledge average. Judgment and insight improving. Diagnosis major depressive disorder recurrent severe F 33.2 Anxiety unspecified Tachycardia PCO S Migraines Plan Continue IOP as the structured setting is necessary to maintain gains and prevent decompensation. Risk-benefit alternative of medications discussed with patient. Patient acknowledges understanding. Continue current medications of Prozac 20 mg daily and Wellbutrin XL 150 mg daily. Patient feels Wellbutrin effective. Increased risk of side effects including increased tachycardia and increased risk of seizure associated with increased doses of Wellbutrin. Patient agreeable to remain at current dose of Wellbutrin as she is continuing to make improvement. Encouraged to establish with outpatient psychiatric providers for when IOP complete. Patient acknowledges understanding and is in agreement with plan. Feels able to maintain safety. Agrees to seek help or emergency care feeling unsafe to self or others. 25 minutes of Insight oriented psychotherapy provided regarding boundary setting with family.
--- NOTE | 2018-01-02 09:01 | BH.SGPN.GN ---
Behaviors/Verbalizations/Mental Status: [Client maintained good eye contact , casually dressed, motor activity appropriate, speech normal rate and tone, mood euthymic,anxious expressed as anxious, affect congruent, thoughts linear and logical, no evidence of delusions or hallucinations. Therapist reviewed clients symptom tracker to assess for intensity of mental health symptoms and identify risk for suicide. No signs of suicidal ideation, plan, or intent to date.] Client Response/Progress/Benefit: [Responded well to session and was actively engaged throughout. She discussed spending time with her niece over the weekend had been enjoyable. Client indicated that she had [place] her sister and her niece and was glad to have spent time outside of the house with some of her supports. Client indicated that she continues to see progress in her ability to manage emotions and cope with irritability, however felt as though she had a minor setback weekend in which she experienced difficulties in establishing boundaries with her family when they asked for money . Client reflected that instead of asserting her boundaries she simply avoided the situation altogether. She went on to discuss beginning to have a conversation with her regarding her mental health treatment and ways in which he could support her ongoing progress. She indicated that this had been bittersweet experience as he tried to be receptive however struggled to understand where client was coming from. Client benefited from the support and positive feedback provided by fellow participants in the group environment and is beginning to make progress in her ability to identify strategies she may use in order to improve effective communication with supports. Client recommended continued P treatment in order to improve consistency of skill application as well as continue to work on increasing client ability to communicate effectively with her supports in order to best support ongoing mental health symptom management.] Narrative Note: []
--- NOTE | 2018-01-02 14:30 | BH.MDN ---
Multi-Disciplinary Note - Note 60-min Individual Time Started:: 12:08 Date: 01/02/18 Purpose of session/treatment goals addressed:: The purpose of this session was to assess Client current symptom management and ongoing difficulties with irritability as well as in maintaining healthy boundaries. Another purpose was to discuss with client locus of control as well as the importance of effectively communicating with supports. Additional topics included: self-care, review healthy boundaries and coping skills. Eye Contact:: Good Motor Activity:: Appropriate Appearance:: Casual Speech:: Appropriate Mood:: Anxious, Irritable Affect:: Congruent Thoughts:: Logical, Circular - client returning back to concerns regarding family on several occassions throughout discussion, No evidence of hallucinations/delusions noted Staff Interventions:: Therapist asked open-ended questions to elicit information regarding Client current symptoms and stressors as well as perspective regarding treatment progress. Therapist acknowledged client concerns and frustrations, providing empathic responses and emotion validation. Reviewed with client components of healthy boundaries and aided client in identifying current barriers to maintaining consistent boundaries. Provided psychoeducation regarding locus of control and assisted client in recognizing ways to begin identifying where she can take control of her own boundaries as well as begin to improve use of self-care strategies and increased communication as a means of healthy coping. Client Response:: Client requested to meet with this therapist following first group regarding current frustrations and concerns, however [facility]. Client informed this therapist that she had just received an email approving her [place] request, but that the request had only been granted through the , which would be this . Client discussed feeling angry and worried about this as she feels the decision had been made unfairly and without considering her mental health. She did well to work with therapist on identifying potential solutions and as well as what resources she could use to ensure her mental health needs were being taken seriously. Client went on to discuss additional frustration with her treatment progress as she indicated that she had been feeling more stable in her ability to manage symptoms of irritability, but that in the past few days has noticed increased agitation and difficulties in regulating her emotions. Client was able to work with therapist on identifying potential triggers or contributing factors to client mood changes. She indicated increased stress related to requests for financial and childcare assistance from her sister and niece. Client indicated feeling as though she is not able to tell them no due to guilt and fear of their reaction. Client able to identify that not communicating these concerns or explaining what her boundaries are may make it difficult for them to know the stress client is under. Client expressed not feeling ready to discuss her boundaries with them but did identify that communicating with her mother about her concerns and brainstorming potential ways to approach her sister about her concerns in a calm manner may be helpful. Client indicated connecting well with the discussion regarding her locus of control in relation to client feelings of guilt. Client in agreement to begin asking herself Is this my responsibility and am okay with not getting anything in return and are my mental health needs being taken care of first? before agreeing to doing any favors. Client additionally receptive of setting aside time for herself and practicing different self-care strategies. Client identified wanting to get back into coloring and going on walks in the evening. Risks/Concerns:: No risks or concerns at this time. Client denying any suicidal ideation, plan, or intent as of 01/02 2018. Client indicates a desire to improve overall mental health and her family as motivations. She is aware of and willing to use local crisis resources should she need. Progress Toward Goals/Plan:: Some progress, though inconsistent. Client continues to report significant difficulties in managing stressors which cause increased irritability. She is making progress in her ability to identify warning signs and factors that may be contributing to current stress levels; however, continues to struggle in implementing steps she has identified as necessary to decreasing and better managing her emotions. Client has identified that lack of communication and poor boundaries is a major contributing factor to her difficulties in making progress on managing irritability and is burning her out. She indicates some reluctance to establish more consistent boundaries with supports due to guit and fear of retalliation. CLient continues to focus on an external locus of control indicating that she cannot improve her mood with current stress levels but is unwilling to establish firmer boundaries at this time. Plan is to continue with IOP treatment and current goals in order to continue to promote healthy boundary setting and effective communication, as well as improve Client use of healthy means for coping with stress and symptoms of irritability. Time Stopped:: 13:05
--- NOTE | 2018-01-02 14:46 | BH.MDN_ITS ---
Multi-Disciplinary Note - Note 60-min Individual Time Started:: 12:08 Date: 01/02/18 Purpose of session/treatment goals addressed:: The purpose of this session was to assess Client current symptom management and ongoing difficulties with irritability as well as in maintaining healthy boundaries. Another purpose was to discuss with client locus of control as well as the importance of effectively communicating with supports. Additional topics included: self-care , review healthy boundaries and coping skills. Eye Contact:: Good Motor Activity:: Appropriate Appearance:: Casual Speech:: Appropriate Mood:: Anxious, Irritable Affect:: Congruent Thoughts:: Logical, Circular - client returning back to concerns regarding family on several occassions throughout discussion, No evidence of hallucinations/delusions noted Staff Interventions:: Therapist asked open-ended questions to elicit information regarding Client current symptoms and stressors as well as perspective regarding treatment progress. Therapist acknowledged client concerns and frustrations, providing empathic responses and emotion validation. Reviewed with client components of healthy boundaries and aided client in identifying current barriers to maintaining consistent boundaries. Provided psychoeducation regarding locus of control and assisted client in recognizing ways to begin identifying where she can take control of her own boundaries as well as begin to improve use of self-care strategies and increased communication as a means of healthy coping. Client Response:: Client requested to meet with this therapist following first group regarding current frustrations and concerns, however was willing to wait until following today?s [facility] program schedule. Client informed this therapist that she had just received an email approving her FMLA request, but that the request had only been granted through the , which would be this . Client discussed feeling angry and worried about this as she feels the decision had been made unfairly and without considering her mental health. She did well to work with therapist on identifying potential solutions and as well as what resources she could use to ensure her mental health needs were being taken seriously. Client went on to discuss additional frustration with her treatment progress as she indicated that she had been feeling more stable in her ability to manage symptoms of irritability, but that in the past few days has noticed increased agitation and difficulties in regulating her emotions. Client was able to work with therapist on identifying potential triggers or contributing factors to client mood changes. She indicated increased stress related to requests for financial and childcare assistance from her sister and niece. Client indicated feeling as though she is not able to tell them no due to guilt and fear of their reaction. Client able to identify that not communicating these concerns or explaining what her boundaries are may make it difficult for them to know the stress client is under. Client expressed not feeling ready to discuss her boundaries with them but did identify that communicating with her mother about her concerns and brainstorming potential ways to approach her sister about her concerns in a calm manner may be helpful. Client indicated connecting well with the discussion regarding her locus of control in relation to client feelings of guilt. Client in agreement to begin asking herself ?Is this my responsibility and am okay with not getting anything in return? and ? are my mental health needs being taken care of first?? before agreeing to doing any favors. Client additionally receptive of setting aside time for herself and practicing different self-care strategies. Client identified wanting to get back into coloring and going on walks in the evening. Risks/Concerns:: No risks or concerns at this time. Client denying any suicidal ideation, plan, or intent as of 01/02 2018. Client indicates a desire to improve overall mental health and her family as motivations. She is aware of and willing to use local crisis resources should she need. Progress Toward Goals/Plan:: Some progress, though inconsistent. Client continues to report significant difficulties in managing stressors which cause increased irritability. She is making progress in her ability to identify warning signs and factors that may be contributing to current stress levels; however, continues to struggle in implementing steps she has identified as necessary to decreasing and better managing her emotions. Client has identified that lack of communication and poor boundaries is a major contributing factor to her difficulties in making progress on managing irritability and is burning her out. She indicates some reluctance to establish more consistent boundaries with supports due to guit and fear of retalliation. CLient continues to focus on an external locus of control indicating that she cannot improve her mood with current stress levels but is unwilling to establish firmer boundaries at this time. Plan is to continue with IOP treatment and current goals in order to continue to promote healthy boundary setting and effective communication, as well as improve Client use of healthy means for coping with stress and symptoms of irritability. Time Stopped:: 13:05
--- NOTE | 2018-01-04 09:07 | BH.SGPN.GN ---
Behaviors/Verbalizations/Mental Status: [Client maintained good eye contact throughout, casually dressed - appearance well kempt, motor activity was appropriate, speech normal rate and tone, thoughts logical - circular in content, some evidence of preoccupation regarding current stressors, no evidence of delusions or hallucinations. Therapist reviewed clients symptom tracker to assess for intensity of mental health symptoms and identify risk for suicide. Suicidal ideation denied, denies plan, or intent to date.] Client Response/Progress/Benefit: [Client willing to engage in process, took on a mostly passive participatory role during discussion. She did however do well to provide input during her own reflection period. Client exasperatedly discussed ongoing frustration regarding her family asking her for money and other favors. Client indicated feeling as if she is the only responsible one and does not understand why others find it so easy to take advantage of her. Client benefitted from others connecting with her frustrations and the support of the group. She was receptive of discussion regarding setting up and maintaining consistent boundaries however continues to struggle in following through with taking steps towards implementation. Client displaying progress in her ability to understand treatment concepts discussed and how such applies to her own life. Client recommended continued IOP treatment in order to improve application of treatment concepts to daily life as well as ability to regulate emotions. ] Narrative Note: []
--- NOTE | 2018-01-09 09:02 | BH.SGPN.GN ---
Behaviors/Verbalizations/Mental Status: []Client alert and oriented, neatly dressed and groomed. Eye contact good. Motor activity appropriate. Speech louder than normal, within normal limits. Affect congruent, mood anxious, irritable. Thoughts linear, logical, no signs of hallucinations or delusions. Reviewed clients symptom tracker, no risk for suicidal ideation, plan, or intent as of 01/09/18. Client Response/Progress/Benefit: []Client responded well to session, active participant and providing supportive statements. Client reports feeling anxious and irritated today after having to set boundaries with her husbands family and it got aggressive. Client identified her current negative as her family driving me crazy. Client shared she is trying to set boundaries, but she is fearful of her family retaliating by keeping her nieces and nephews away from client. Client reported it is also hard to maintain boundaries as client shared she has to continue to reinforce boundaries which leads to frustration. Client was receptive to group feedback and able to identify distorted thoughts keeping client from setting boundaries. Client identified current positives as taking time for self-care by doing her nails and spending time with her at their [place] on Monday. Client appeared to benefit from connecting with peers and gaining feedback on boundaries. Progress noted as shown by clients increased self-care, but client continues to struggle with managing anger and challenging cognitive distortions that keep client from setting healthy boundaries.
--- NOTE | 2018-01-09 10:15 | BH.SGPN.GN ---
Behaviors/Verbalizations/Mental Status: [Client maintained mostly good eye contact throughout - at times inconsistent when distracted by phone near end of session, casually dressed, motor activity within normal limits, speech appropriate rate and tone - providing limited input, mood dysthymic, irritable, affect constricted, thoughts linear and logical - content appearing preoccupied at times AEB client being disconnected from group and distracted by self, no evidence of delusions or hallucinations.] Client Response/Progress/Benefit: [Client receptive of session and appeared to be actively listening throughout. This was evidenced by CLient nodding with discussion and taking notes. Client provided limited verbal input as she expressed prior to group wanting to listen and observe in session due to feeling increasingly irritable. Despite client negative mood she did well not to allow this to impact her ability to remain attentive and engaged in discussion. Client benefited from discussion reviewing various conflict resolution styles as well as how ineffective communication can impact mental health and ability to resolve conflict within relationships. She identified feeling as though she is often the competing approach to conflict resolution however at times falls into the accommodating style when communicating with her . She indicated wanting to be more collaborating in her approach to conflict as she does not always get her voice heard or struggles to come to a common ground with those she is having conflict with. Client displayed progress in her ability to identify implications of her current conflicts style on maintaining adverse mental health symptoms. Recommended continued IOP treatment in order to maintain stability and continued to improve client ability to apply treatment treatment strategies in better regulating emotions and decreasing ruminations leading to irritability] Narrative Note: []
--- NOTE | 2018-01-09 11:17 | BH.SGPN.GN ---
Behaviors/Verbalizations/Mental Status: [Client maintained fair eye contact at times looking at phone, dressed casually and neatly, motor activity restless fidgeting with phone at times, speech normal rate and tone, mood euthymic, agitated, affect congruent, thoughts linear and logical, no evidence of delusions or hallucinations.] Client Response/Progress/Benefit: [Client responded well to session, active participant ZEYNE[employer] foster rovided in discussion and activity. Client did well to work with fellow participants in completing the challenge activity and able to identify use of assertive approaches to conflict throughout. Client reflected that she was able to collaborate on most items however noted ?there are just somethings I?m not willing to compromise on?, indicating the toilet paper in activity. Client progress noted in identifying how unwillingness to compromise in some areas connects with her approaches to conflict in her own life and noted that there are some issues with her family she has a hard time compromising on, creating tension at times and impacting ability to communicate effectively. Client helped the group identify strategies to improve conflict resolution such as knowing when to walk away or not engage and taking time to consider different perspectives. Client appeared to benefit from learning various conflict resolution strategies. Client to continue IOP improve mood stability and healthy boundaries with supports, as well as prevent decompensation.] Narrative Note: []
--- NOTE | 2018-01-11 09:04 | BH.SGPN.GN ---
Behaviors/Verbalizations/Mental Status: [] Pt eye contact fair, casually dressed, motor activity normal, speech normal rate and tone, mood dysthymic, congruent affect, thoughts linear and logical, no evidence of delusions or hallucinations. Reviewed client?s symptom tracker, no signs of suicidal ideation, plan, or intent as of today. Client Response/Progress/Benefit: []Pt reported she doesn't have much to say because felt blah all week. Pt shared she doesn't have any particular trigger or reason to feel blah, but just does. Pt reported she did color yesterday evening which made her feel a little better. Pt shared she also completed her goal from Monday of talking with her mom about being consistent with setting boundaries with pt's family. Pt reported her mom was receptive to be on the same page in regards to boundaries. Pt shared she is continuing to be consistent with her boundary setting, recognizing the importance of taking care of herself. Pt's mood seemed to improve throughout first group session. Made supportive comments to peers. Progress noted with pt continuing to use coping strategies despite identifying feeling blah. Pt to continue IOP level of care to improve mood stabilization and prevent decompensation. Narrative Note: []
--- NOTE | 2018-01-11 10:08 | BH.SGPN.GN ---
Behaviors/Verbalizations/Mental Status: [Client maintained good eye contact, dressed casually and neatly, motor activity appropriate, speech normal rate and tone, mood euthymic, affect congruent, thoughts linear and logical, no evidence of delusions or hallucinations] Client Response/Progress/Benefit: [Client responded well to session, active participant. Client appeared to connect with the quote and topic of ?taking action? as she indicated feeling as though she has been held back by herself and others for ?too long?. Client identified things in her life that are holding her back from moving towards mental wellness such as worrying about what her family will think, wanting to change others, guilt, anger, and difficulty letting things go. Client stated she wants to take back control over these stressors and symptoms because she has been allowing others to dictate her mood and happiness. Client appeared to benefit from identifying stressors and symptoms holding her back and participating in a symbolic activity. Client to continue IOP to continue increasing awareness and management of emotions via thought challenging and effective communication.] Narrative Note: []
--- NOTE | 2018-01-11 11:15 | BH.SGPN.GN ---
Behaviors/Verbalizations/Mental Status: [Client maintained good eye contact, casually dressed appearing unbathed and tired, motor activity appropriate, speech normal rate and soft tone, mood depressed, anxious, affect congruent, thoughts linear and logical, no evidence of delusions or hallucinations.] Client Response/Progress/Benefit: [Client responded well to session, active participant. Client created a 30-day action plan to promote emotional wellness and take back control over her mental health. Client's goal for the next 30 days is ?no more allowing other?s actions impact me?. Client shared ?I want to be able to let go of the fact that I can?t change other people or make their decisions for them.? Client reported this plan will benefit client as she wants to gain more control over her own emotions and set boundaries as well as reduce taking on other people?s problems as it just leads to resentment and rumination. Client's steps included reminding herself daily of her not to get involved, using thought challenging, and limiting time spent with negative or toxic people. Client appeared to benefit from identifying a 30-day goal that will improve her mental wellness. Progress noted as client reports decreased anxiety but client continues to report ongoing challenges with irritability and poor communication with supports. To continue IOP to promote gains and increase emotional regulation.] Narrative Note: []
--- NOTE | 2018-01-11 14:34 | BH.MDN ---
Multi-Disciplinary Note - Note 45-min Individual Time Started:: 12:11 Date: 01/11/18 Purpose of session/treatment goals addressed:: The purpose of this session was to assess client's current symptoms, stressors, and perceptions of treatment goal progress. Another goal was to identify internal coping skills and strategies client may use to manage irritability. Additional topics covered: boundary maintenance, stress management. Eye Contact:: Good Motor Activity:: Appropriate Appearance:: Casual Speech:: Appropriate Mood:: Euthymic Affect:: Congruent Thoughts:: Linear, Logical, No evidence of hallucinations/delusions noted Staff Interventions:: Therapist used active listening and open-ended questions to explore client's current stressors, barriers, and perceived progress towards treatment goals. Therapist used reflective listening and encouragement to commend client areas of progress and promote continued gains. Aided Client in identifying current barriers contributing to ongoing symptoms and brainstormed strategies for maintaining healthy boundaries, promoting communication with supports, and preventing emotion dysregulation. Client Response:: Responded well to session and remained actively engaged throughout. Client openly discussed areas of treatment progress as well as current barriers contributing to ongoing difficulties in managing symptoms of irritability. CLient discussed that she has been feeling kind of blah for the past few days but does not feel that her mood has been significantly negative or irritable which is an improvement. She indicated that earlier in the week she had taken the initiative to establish a boundary with her niece and sister and has successfully followed through with decreasing the amount of time spent around them. Client reflected that this had been difficult to do as she felt guilty not responding to their requests to babysit but was glad she maintained her boundaries. She went on to identify that decreasing her time with negative supports has also reduced how overwhelmed she has been and the amount of time spent ruminating on feelings of being taken advantage of. Client attributes her decision to establish firmer boundaries as contributing to decreased irritability and improved communication. She noted that she had additionally talked with her about decreasing how long they spend venting about negative aspects of their day and explained to him beliefs that this causes her to feel increasingly agitated and puts her in a negative mood. She reports her was supportive and that she has seen improvements in their overall communication as a result. Client and therapist discussed potential barriers to client maintaining the progress made this week and discussed the importance of consistent implementation of the boundaries and small goals she set throughout the week. Client identified talking to her supports about holding her accountable when she is taking on other people's problems or emotions would be most beneficial. She additionally indicated plans to not immediately respond when asked to do something for her niece or sister in order to limit additional responsibilites she is taking on and prevent from becoming increasingly irritable. Risks/Concerns:: No risks or concerns. Client denies suicidal ideation, plan, and intent as of 01/11/18. Progress Toward Goals/Plan:: Client demonstrating progress towards treatment goals as she reports some reduction in overwhelming stress, irritability symptoms, and negative thinking, as well as an increased ability to establish healthy boundaries with toxic relationships. However, client continues to report difficulties in maintaining consistency of boundaries and little time spent on establishing a healthy self-care routine to prevent and manage increased irritability. Client to continue IOP to promote mood stability and coping skill maintenance. Time Stopped:: 12:00
--- NOTE | 2018-01-12 10:00 | BH.COMM ---
Communication Note - Communication with Client Communication Note: cancelled
--- NOTE | 2018-01-12 10:42 | BH.TPR ---
Treatment Plan Review Date of Admission:: 12/12/17 Date of Treatment Plan Review:: 01/12/18 Admitting Diagnoses:: Major depressive disorder recurrent severe F 33.2. Anxiety unspecified. Tachycardia. PCOS. Migraines Current Diagnoses:: Major depressive disorder recurrent severe F 33.2. Anxiety unspecified. Tachycardia. PCOS. Migraines Patient's Response to Treatment:: Client reports enjoying her experience in the IOP program and is able to identify improvements in her mood and mental health symptom management. Client reports that since beginning the IOP program she has gained increased levels of insight into her mental health symptoms, warning signs, and strategies for challenging her negative thinking patterns and irritability towards others. Client has successfully improved levels of communication with her and reports fewer arguments. She additionally stated improved use of healthy boundary setting with supports which has aided in client stress management and decreased levels of frustration or resentment towards supports. Client reports increased ability to apply radical acceptance and reframing strategies to challenge negative thoughts and rumination. She reports decreased levels of depression, anxiety, and irritability, however continues to struggle with consistent management of irritability symptoms at times. Client continues to struggle with some ruminative anxiety regarding her future and returning to work as she fears becoming overwhelmed easily and unable to manage the work load. Client attendance has been inconsistent as client has cancelled on various occasions which has hindered treatment progress. When in attendance she is willing to engage in both the individual and group settings, however struggles to actively apply treatment concepts outside of the IOP setting. Client states she would like to find an outpatient therapist as an additional support to help client work toward treatment goals and continue to improve management of mental health sx. Status of Current Problems and Symptoms: Client continues to report difficulties in managing symptoms of irritability and decreasing current stressors. She is able to identify that this is in part related to inconsistent boundaries; however, has been making progress in this area and is beginning to improve ability to maintain healthy boundaries with toxic family members. Client decreased depressive symptoms and an improved mood. However, client continues to endorse negative thinking, difficulties managing her emotions when stressed, and ongoing rumination related to issues with infertility. Problem #1 Problem Name:: Decrease depressive symptoms, uncontrolled crying, isolation, irritability. Status of Goals:: Client has successfully accomplished most of this treatment goal as client is no longer reporting significant symptoms of depression, denies uncontrollable crying spells since taking FMLA, is no longer engaging in isolative behaviors, and reports increased mil[place] in daily activities. Client continues to display progress towards achieving this treatment goal as she has been able to successfully go places with her family and is no longer engaging in isolative behaviors. She is also progressing in increasing communication with supports and utilizing positive self-talk to replace unhelpful thinking patterns. Client is able to identify warning signs and triggers for irritability and is currently working on more consistent application of emotion regulation and stress management skills to prevent escalation. Team Recommendations:: Client to continue treatment goal and IOP to promote emotional regulation and reduce ongoing difficulties in managing stressors. Client to continue challenging and reframing negative or distorted thoughts, communicating with supports, and engaging in social activities daily. 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 Problem #2 Problem Name:: Decrease ruminating thoughts which cause anxiety and difficulties with conc Status of Goals:: Client has not yet accomplished this treatment goal as client continues to report ruminative anxiety related to others behaviors and taking on more responsibilities than Client can manage. Client reports difficulties with maintaining consistent boundaries with toxic supports and indicates ongoing irritability due to such. She has increased use of thought challenging via application of components of DBT (I.e. radical acceptance) which demonstrates progress. Client also progressing with utilizing supports to process her anxieties and hold her accountable for working on improving positive thinking. However, Client continues to struggle with internalizing treatment content associated with CLient locus of control as she continues to rely on external coping mechanisms. Client and therapist currently working on improving consistent use of coping skills and skill application when recognizing warning signs, maintaining healthy boundaries, and ongoing communication with supports. Team Recommendations:: Client to continue treatment goal and IOP to promote mood stability and continue to challenge unrealistic thoughts. Client to gain awareness of internal coping mechanisms and implement calming coping skills daily.
--- NOTE | 2018-01-16 10:00 | BH.COMM ---
Communication Note - Communication with Client Communication Note: cancelled
--- NOTE | 2018-01-23 11:53 | BH.COMM ---
Communication Note - Communication with Client Communication Note: Pt did not show for IOP this AM. Therapist called pt who reports that she had to leave the state for family event over the weekend and did not get back to till late Monday. Informed pt that if she does not attend tomorrow she will be discharged. Poor attendance over the past 2 weeks in IOP with multiple cancellations. Plan is to re-assess current symptomolgy tomorrow to determine if any additional sessions are needed. Pt is not utilizing IOP services and it is unclear if attendance is related to isolative behaviors, depression, or any other MH concerns therefore will re-assess.
--- NOTE | 2018-01-24 10:43 | BH.MDN ---
Multi-Disciplinary Note - Note 45-min Individual Time Started:: 09:20 Date: 01/24/18 Purpose of session/treatment goals addressed:: Purpose of the session was to discuss with client current symptoms, stressors, and treatment goal progress as well as begin discharge planning. Another purpose was to work with client on creating a return to work plan for managing occupational stressors to prevent increased emotional dysregulation. Eye Contact:: Good Motor Activity:: Appropriate Appearance:: Casual - hair frizzy, appearing unbrushed Speech:: Appropriate Mood:: Euthymic, Anxious Affect:: Full Thoughts:: Linear, Logical, No evidence of hallucinations/delusions noted Staff Interventions:: Therapist used active listening and open-ended questions to gather information on client's current symptoms and stressors, as well as identify client perception of treatment progress. Therapist utilized Motivational Interviewing techniques to elicit change talk regarding client return to work and ability to continue to make progress in regulating her emotions as well as maintaining appropriate boundaries. Worked with Client to begin creating a plan for managing occupational stressors and prevent emotional dysregulation upon return to work. Therapist provided Client with referral information on local counseling resources in order to establish appropriate aftercare. Client Response:: Client denies suicidal ideation, plan, and intent as of 01/24/18. Client is future oriented and reports a strong support system which serves as a protective factor. Risks/Concerns:: Client willing to meet with this therapist for session and receptive of content discussed. She shared her recent trip with family had been enjoyable, however client experienced increased irritability on the drive home due to inclement weather and feeling as though her supports were not being helpful in the car. Client discussed outside of this incident she feels as though her ability to manage frustrations and stressors has improved and is experiencing decreased levels of irritability since beginning the IOP program. Client and therapist went on to discuss areas in which Client has been able to make progress throughout treatment. Client identified increased communication with her and indicated that she has observed improvements in their relationship and ability to connect with one another due to such. Client reports she has additionally successfully implemented healthier boundaries with her niece and sister which has aided in decreasing stress levels and reducing the amount of responsibilities client has. When asked how she plans to continue to maintain current gains client had some difficulty in identifying strategies she may use following discharge scheduled for this Monday. Client initially indicated I just will not let things get to me and was unable to identify concrete skills she may use or warning signs to indicate she is beginning to become increasingly irritable or stressed. Upon further discussion client was able to begin identifying current warning signs including feeling overwhelmed or on edge, decreased communication with supports, and verbal outburst. Client and therapist additionally discussed ways she may prevent her from escalating when identifying these warning signs including stepping away and taking a break, waiting to respond to others and allowing herself to process the information and calm down first, and asking herself is getting upset about this worth my time and energy?. Client reports increased anxiety regarding her return to work date on Monday. She shared although she feels she no longer needs to be in the IOP program she does not feel she is ready to return to work as client fears she will become overwhelmed and unable to manage the demands of the job. Although able to identify the benefits of creating a return to work plan, client was reluctant to work with therapist on identifying specific strategies she may use or steps she may take in order to prevent burnout or becoming overwhelmed when returning to work. 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 She indicates plans to continue looking for another position elsewhere and shared I just have to work through it like everybody else until I find something else. Client discussed plans to meet with her primary care physician this week in order to discuss concerns regarding return to work. Client additionally open to following up with individual outpatient counseling services at [facility] in order to continue to make progress in managing mental health symptoms as well as aid in supporting her transition back to work. Client reports plans to schedule an intake assessment after she leaves the IOP program on this date. Progress Toward Goals/Plan:: Limited progress. Client has been unable to attend IOP program in the last 2 weeks which has impacted ongoing treatment progress or ability to work on additional skills client may use to improve management of mental health symptoms. Outside of IOP group, client indicates that she has experienced decreased levels of irritability and increased communication with her supports. Despite reports of improved emotion regulation, client has identified some difficulties in managing irritability in the moment and continues to struggle with consistent implementation of healthy stress management and emotional regulation skills. Client does report improved boundary levels with supports and indicates that this has aided in improving client overall mood. Current plan is for client to discharge from IOP program on 01/26/2018, as client is able to function at baseline and reports improved mental health symptoms and decreased levels of irritability and depression. Client would benefit from ongoing counseling services on an outpatient basis in order to improve anger management, continue to increase her ability to deal with stressors and prevent escalation, maintain healthy bundaries, and aid in her transition back to work. Client is receptive of referral information for outpatient counseling services and indicates plans to schedule an intake assessment at [place] therapy on this date. Time Stopped:: 10:04
--- NOTE | 2018-01-24 14:39 | BH.PSA_ITS ---
Source of Information - Presenting Problems/Circumstances Problems, Referral Source, Mental Status, Client: Client is a 37-year-old female referred to the behavioral medicine [facility] by primary care physician Dr. Ortega due to increased symptoms of anxiety and depression due to increased familial and occupational stressors. CLient alert and orient x3, appropriate grooming and hygiene, no SI/HI plan or intent expressed. CLient receptive of interview. Thoughts appearing linear and logical. Psychiatric Presentation - Psych Issues & Need for Admission Psychiatric Issues:: Major depressive disorder recurrent severe F 33.2, Anxiety unspecified, Tachycardia, PCOS, Migraines Past Psychiatric History - Treatment Hx Treatment History: Client denies previous counseling or psychiatry services. She reports being diagnosed with anxiety and depression in her 20's. She has been treated with Prozac since her mid 20s with the exception of a 2 year period of abstinence when she was undergoing infertility treatment. Resume Prozac year and a half ago. Client denies previous psychiatric hospitalization or suicidal ideation. She does not have a current outpatient psychiatrist or counselor at this time. First hospitalization:: Denies Most recent hospitalization:: Denies Medication Trials:: No ECT Therapy:: No Age of first mental health symptoms: Client reports first experiencing mental health symptoms of anxiety and depression in her early 20's. Describe (age, circumstance, etc) any past hospitalizations: Denies past psychiatric hospitalization. Current providers for mental health treatment (counselor, psychiatrist, case supervisor , etc.): Client denies any current outpatient counseling or psychiatry at this time. CLient will be referred for outpatient services prior to discharge. Development & Family of Origin - Childhood Significant Childhood Events: Client describes her childhood at wonderful however indicates that her father could be very strict or rigid about his expectations which created some emotional distance from him growing up. - Family Who currently lives in your home?: Client lives in her own home with her and two dogs. Describe family composition:: Client is the youngest of 2 children. She has an older sister whom she reports is toxic and uses me for everything. Client indicates being close with her mother and getting along with her father. Client reports relationship tension with her as she describes him as rigid and not understanding of her mental health needs. - Family History Family Hx of Psychiatric or AOD Problems: Mother-anxiety. Maternal aunt- depression. Maternal cousin-schizophrenia. Nephew-anxiety. Niece-bipolar. Paternal aunt completed suicide by insulin overdose. 3 paternal aunts and 1 paternal uncle with depression Ethnicity - Culture Do you identify yourself with any particular cultural, ethnic background, or community?: No - Sexuality Sexual Orientation: Heterosexual Spirituality - Shinto Do you currently identify with any organized jew?: None - Beliefs Is there a particular form of support from this community you can use for your recovery?: No Mental Status - Memory Recent Memory: Good Remote Memory: Good - Concentration Concentration: Good - Eye Contact Eye Contact: Good - Speech Speech: Articulate, Congruent - Thought Process Thought Process: Logical Insight: Fair Judgment: Fair Behavior: Anxious - Orientation Orientation: Time, Person, Place, Situation - Appearance Appearance: Appropriate - Mood Mood: Anxious, Depressed - Affect Affect: Appropriate/calm Suicide Assessment - Suicidal Ideation Have you ever felt like hurting yourself?: No Were you using ETOH/drugs at the time?: No Suicidal Intentional Rating Scale (SIRS): No suicidal thoughts (past or present) Physician Notification: If Active suicidal thoughts/Will not contract for safety is checked, contact physician and document in the Physician Notification section below. Violent Behavior/Abuse History - Homicidal Ideation Do you have any homicidal thoughts? If so, explain:: No Is there a known potential victim? If yes, who:: No - Abuse Have you ever been abused?: No Please explain:: Client reports father was rigid and emotionally distant growing up but denies any abuse. - Life Events Are there any other significant life events?: Hardships - Client struggling with infertility which has had significant impact on mental health Describe significant life events: infertility, increased caregiver responsibilities for aging parents - Safety Do you ever feel threatened in your home? If yes, describe:: No Adult Social History - Age 18 to Present Describe your current support system:: Client identifies current supports as her , mother, and sister; however, reports that these supports can also be stressors due to unhealthy boundaries and poor communication. Substance Use - Substance Substance Use Type: Alcohol - Consumes 2 alcoholic drinks once per year. Admits to binge drinking in her mid 20s to the point of blacking out. - Specific Drugs What specific drugs have you used?: Alcohol - Extent of Use What quantity of substances have you used?: Consumes 2 alcoholic drinks once per year. Admits to binge drinking in her mid 20s to the point of blacking out. - Duration of Use How long have you used substances?: Reports she began drinking in early 20's and currently drinks ~2 alcoholic beverages twice a year. - Last Usage What is the date and situation you last used?: Unknown. Client did not report last known use. - IV Substance Use Do you have a history of IV use?: Denies Leisure/Social Activities - Interests What do you enjoy or might be interested in learning about?: Client reports enjoying spending time with her great nieces and being outdoors. She additionally indicates enjoying reading. CLient identifies wanting too learn how to better manage symptoms of irritability and anxiety in order to improve overall mental health and functioning. 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 List any previous volunteering you may have done:: None reported Service - Service Have you ever been in the ?: No Legal History - Records Have you had any past legal charges?: No Do you have any current legal charges?: No Have you ever been incarcerated? If yes, describe:: No - Court Orders Have you had any past court orders for psychiatric treatment?: No Do you have a present court order for psychiatric treatment?: No Problem Checklist - Current Problem Areas Problem List: Nutritional/Eating pattern changes - reports emotional eating and recently lost 80 pounds in three months with the assistance of [employer]., Pain management - associated with chronic back pain, Depressed mood/sad, Anxiety , Anger/aggression, Sleep problems - increased stress, Pertinent health issues - infertility, Additional psychosocial stressors - Reports increased familial conflict Discharge Planning Needs - Anticipated Follow-Up Private Therapist/Psychiatrist:: Will be referred to outpatient counseling services prior to discharge Primary Care Physician: Trinidad Antunez Family and Caregiver Contacts:: Angy Miller, Sister -[phone] Release of Information Signed:: Yes Treasury Associate's Assessment - Client's Needs What are the client's feelings about the program?: Client reports looking forward to gaining skills to improve ability to manage symptoms of irritability and depression through IOP program. She indicates looking forward to the group experience and connecting with fellow participants who may be experiencing similar symptoms. What are the client's goals?: Client reports current goal of improving management of mental health symptoms of depression, anxiety, and irritability by increase use of health coping mechanisms, improving communication, and setting healthy boundaries. What are the client's strengths?: Client appears motivated to improve mental health symptpms and make progress in treatment, she is resilient, intelligent, and open to trying new means of coping with current symptoms Diagnoses - Diagnoses Diagnosis #1:: Major Depressive Disorder F33.2 Diagnosis #2:: Anxiety, unspecified Diagnosis #3:: PCOS Diagnosis #4:: Migraines Interpretive Summary - Interpretive Summary Interpretive Summary: Client is a 37-year-old female referred to the behavioral medicine IOP by primary care physician Dr. Ortega due to increased symptoms of anxiety and depression. Client reports symptoms have been worsening over the past 6 months resulting in decreased ability to function at baseline and difficulties completing occupational duties. Client currently on FMLA from work. Client attributes increased symptoms stemming from recent stressors including infertility, family discord, and relationship discord with her who she reports has rigid thinking. At time of intake client is endorsing a depressed mood with feelings of sadness, crying spells, anhedonia, decreased energy, and difficulty concentrating. She reports secondary emotions associated including irritability and anger, as well as ruminative anxiety about multiple issues, and difficulty making decisions. Client additionally indicates increased sleep and emotional eating to cope. Client reports a family history of depression, anxiety, bipolr, and schitzophrenia. Denies HI or psychosis. Denies previous or current SI. No hx of attempts Based on worsening depression and anxiety sx, increased familial tension, psychosocial and occupational stressors, decreased functioning at baseline, and isolative behaviors she is recommended [facility] level of care at this time. Treatment Plan Recommendations - Recommendations Guidelines: Special needs identified to be included in the development of an individualized treatment plan regarding past psychiatric history and treatment, developmental events, family relationships/events/culture, past and/or current educational, occupational, social, and residential experience, and legal status. Recommendations:: Based on worsening depression and anxiety sx, increased familial tension, psychosocial and occupational stressors, decreased functioning at baseline, and isolative behaviors she is recommended [facility] level of care at this time. To be referred to outpatient counseling and psychiatry services prior to discharge.
== END 2018-01-12 23:59 ==
LOC: BHIOP 09:00
PROVIDERS: Family Provider Internal Medicine; PCP Internal Medicine; Visit Provider Psychiatry & Neurology Psychiatry
DX: F33.2 Major depressive disorder, recurrent severe without psychotic features (principal); F41.9 Anxiety disorder, unspecified; R00.0 Tachycardia, unspecified; E28.2 Polycystic ovarian syndrome; G43.909 Migraine, unspecified, not intractable, without status migrainosus
CPT/HCPCS: H0035; 90837; 90853

== ENCOUNTER 2018-01-24 09:00 | Outpatient (RCR) | payer OTHER, SELFPAY ==
--- NOTE | 2018-01-17 16:44 | BH.COMM ---
Communication Note - Communication with Client Communication Note: Client called to cancel for the remainder of the week as she had to leave town for a family event. Client indicated that she was unsure of exactly when she would return but was back in time to return to IOP group by next Tuesday 01/23 or Wednesday 01/24. Will follow-up with Client regarding attendance concerns upon her return.
--- NOTE | 2018-01-24 10:10 | BH.SGPN.GN ---
Behaviors/Verbalizations/Mental Status: []Client alert and oriented, hygiene good, casual dress. Eye contact good. Motor activity appropriate. Speech within normal limits. Affect congruent, mood euthymic. Thoughts linear, logical, no signs of hallucinations or delusions. Client Response/Progress/Benefit: []Client responded well to session, providing insight to discussion. Client defined crisis a situation or event that is challenging to overcome. Client agreed with peers that anything could develop into a crisis depending on individual circumstances. Client shared crisis can impact the body mentally, emotionally, physically, and behaviorally. Client participated in group discussion of the role coping skills play in managing crisis. Client stated, we dont always cope in a healthy way and that can make it worse. Client reported when she experiences personal crisis I appear put together, but inside Im falling apart and people just keep taking from me. Client shared she tends to be the caregiver or strong person in her family in times of crisis, which client views as a negative and positive. Client appeared to benefit from increasing awareness of how a crisis can develop and what crisis looks like for her. Progress noted as evidenced by clients report of increased management of anger, but she continues to struggle with managing ongoing stressors.
--- NOTE | 2018-01-24 11:10 | BH.SGPN.GN ---
Behaviors/Verbalizations/Mental Status: []Client alert and oriented, casual dress. Eye contact good. Motor activity appropriate. Speech within normal limits. Affect full, mood euthymic. Thoughts linear, logical, no signs of hallucinations or delusions. Client Response/Progress/Benefit: []Client responded well to session, contributing positively to discussion. Client able to identify warning signs that indicate client is heading towards panic or crisis. Client identified her top warning signs as changes in mood I get mean and nasty, loss of interest, and isolating. Client shared if she recognizes her change in mood early enough she can talk to her mom and calm down. Client helped the group identify coping skills for both crisis prevention and de-escalation. Client created a crisis survival kit that included tea for self-care, monster sticker to remind client of her nieces, a straw to chew on, and a pom pom for mindfulness. Client stated the items in the kit will help client remember to use grounding, self-care, and to be around who make client feel better. Client appeared to benefit from creating a crisis survival kit that reminded client of healthy coping skills to use during crisis. Client to continue IOP to promote maintenance and emotional regulation to manage anger.
--- NOTE | 2018-01-24 16:21 | BH.AFTERPLAN ---
Aftercare Plan - Demographics Treatment End Date:: 01/26/18 Psychiatrist:: Cintia Lovett Psychiatrist Office #:: [phone] [facility]/IOP Therapist:: Rut Oseguera Therapist Phone #:: [phone] - Medications Home Medications: Home Medications Dicyclomine HCl [Bentyl] 20 mg PO TIDAC #20 capsule 06/09/16 Metoprolol Succinate [Toprol Xl] 50 mg PO DAILY 06/09/16 Omeprazole [Prilosec] 20 mg PO DAILY 06/09/16 Spironolactone [Aldactone] 50 mg PO DAILY 06/09/16 Fluoxetine [Prozac] 20 mg PO DAILY 01/26/18 buPROPion XL [Wellbutrin Xl] 150 mg PO DAILY 01/26/18 - Plan Details Progress/Aftercare Plan Details:: Since beginning the IOP program Brigitte has done well to engage in both the individual and group settings. She reports that in the past few weeks she has successfully made progress in setting healthier boundaries with family and is feeling less stressed as a result. Brigitte additionally reports decreased levels of depression and is actively applying thought challenging strategies to maintain current gains. She indicates that asking herself is this worth my time and energy has been most helpful in overcoming negative thinking pattern. Brigitte has successfully improved overall communication levels with her supports which is evidenced by her reports of noticing increased communication and understanding between she and her . Brigitte has reported a more positive outlook on life and shared that this is partially due to better boundary setting, decreased isolation, and prioritizing responsibilities. Keep up the good work and remember to be kind to yourself! Strategies for Success:: 1. Pay attention to how your thoughts are impacting your mood and the messages you are telling yourself! -- Are you using a distorted way of thinking? If so, how can you challenge or reframe that thoughts? 2. Remember it's all about perspective. Ask yourself Is this worth my time and energy worrying about this?. 3.Use positive thinking and self-talk! Don't let YOU hold YOU back. What we tell ourselves is often related to how we feel. If I focus on the negative, Im going to feel that way 4. Follow-up with counseling. Managing your mental health takes time and effort, you can't continue to make progress if you don't show up for the help available. 5. Reach out to your supports. You have people who care and want to spend time with you! Just make sure that it is being done in healthy ways and that you are not taking others responsibilities 6. BOUNDARIES. Leave the toxic thoughts AND relationships in the past. Pay attention to who you are surrounding yourself with. - Appointments Appointments/Referrals to Other Services:: Client referred to outpatient counseling services and given referral information for both [facility] and [facility]; however, Client indicates plans to work on a PRN basis following return to work which means she will need to switch to her 's insurance and will need to wait until she is able to do so before setting up an intake appointment. CLient additionally encouraged to follow-up with outpatient psychiatry services and given referral resources to [facility]. Client indicates she can fill current rx through PCP at this time.
--- NOTE | 2018-01-26 08:53 | BH.IGGP_ITS ---
Aftercare Plan - Demographics Treatment End Date:: 01/26/18 Psychiatrist:: Cintia Lovett Psychiatrist Office #:: [phone] [facility]IOP Therapist:: Rut Oseguera Therapist Phone #:: [phone] - Medications Home Medications: Home Medications Dicyclomine HCl [Bentyl] 20 mg PO TIDAC #20 capsule 06/09/16 Metoprolol Succinate [Toprol Xl] 50 mg PO DAILY 06/09/16 Omeprazole [Prilosec] 20 mg PO DAILY 06/09/16 Spironolactone [Aldactone] 50 mg PO DAILY 06/09/16 Fluoxetine [Prozac] 20 mg PO DAILY 01/26/18 buPROPion XL [Wellbutrin Xl] 150 mg PO DAILY 01/26/18 - Plan Details Progress/Aftercare Plan Details:: Since beginning the IOP program Brigitte has done well to engage in both the individual and group settings. She reports that in the past few weeks she has successfully made progress in setting healthier boundaries with family and is feeling less stressed as a result. Brigitte additionally reports decreased levels of depression and is actively applying thought challenging strategies to maintain current gains. She indicates that asking herself ?is this worth my time and energy? has been most helpful in overcoming negative thinking pattern. Brigitte has successfully improved overall communication levels with her supports which is evidenced by her reports of noticing increased communication and understanding between she and her . Brigitte has reported a more positive outlook on life and shared that this is partially due to better boundary setting, decreased isolation, and prioritizing responsibilities. Keep up the good work and remember to be kind to yourself! Strategies for Success:: 1. Pay attention to how your thoughts are impacting your mood and the messages you are telling yourself! -- Are you using a distorted way of thinking? If so, how can you challenge or reframe that thoughts ? 2. Remember it's all about perspective. Ask yourself ?Is this worth my time and energy worrying about this??. 3.Use positive thinking and self-talk! Don't let YOU hold YOU back. What we tell ourselves is often related to how we feel. If I focus on the negative, I?m going to feel that way 4. Follow-up with counseling. Managing your mental health takes time and effort, you can't continue to make progress if you don't show up for the help available. 5. Reach out to your supports. You have people who care and want to spend time with you! Just make sure that it is being done in healthy ways and that you are not taking other?s responsibilities 6. BOUNDARIES. Leave the toxic thoughts AND relationships in the past. Pay attention to who you are surrounding yourself with. - Appointments Appointments/Referrals to Other Services:: Client referred to outpatient counseling services and given referral information for both [facility] and [facility]; however, Client indicates plans to work on a PRN basis following return to work which means she will need to switch to her 's insurance and will need to wait until she is able to do so before setting up an intake appointment. CLient additionally encouraged to follow-up with outpatient psychiatry services and given referral resources to [facility]. Client indicates she can fill current rx through PCP at this time.
--- NOTE | 2018-01-26 09:00 | BH.SGPN.GN ---
Behaviors/Verbalizations/Mental Status: []Client alert and oriented, hygiene good, dress casual. Eye contact good. Motor activity appropriate. Speech within normal limits. Affect constricted, mood anxious, irritable. Thoughts linear, logical, no signs of hallucinations or delusions. Reviewed clients symptom tracker, no risk for suicidal ideation, plan, or intent as of 01/26/18. Client Response/Progress/Benefit: []Client responded well to session, active participant. Client reports feeling anxious today as client is waiting to hear back on a job offer. Client shared this wait is her negative for today stating, I'm not patient. Client identified her positives as taking her nieces to the fair yesterday and possibly getting this new job. Client appeared to benefit from reflecting on positives to help manage anxiety. Client to discharge from [facility] today as she has made progress and no longer meets IOP level of care.
--- NOTE | 2018-01-26 09:37 | BH.DS ---
Discharge Summary - Demographics Date of Admission:: 12/12/17 Discharge Date: 01/26/18 Presenting Problems at Admission:: Client is a 37-year-old female referred to the behavioral medicine [facility] by primary care physician Dr. Ortega due to increased symptoms of anxiety and depression. Client reports symptoms have been worsening over the past 6 months resulting in decreased ability to function at baseline and difficulties completing occupational duties. Client currently on FMLA from work. Client attributes increased symptoms stemming from recent stressors including infertility, family discord, and relationship discord with her who she reports has rigid thinking. At time of intake client is endorsing a depressed mood with feelings of sadness, crying spells, anhedonia, decreased energy, and difficulty concentrating. She reports secondary emotions associated including irritability and anger, as well as ruminative anxiety about multiple issues, and difficulty making decisions. Discharge Diagnoses:: Major depressive disorder recurrent severe F 33.2. Anxiety unspecified. Tachycardia. PCOS. Migraines Reason for Discharge:: Client has successfully met treatment goals and no longer meets requirements for [facility] level of care. Client displayed an overall decrease in symptoms of depression and anxiety as evidenced by a reduction in DSM Cross-Cutting Measurement score of upon admission to on discharge date. Client is planning to follow-up with on-going outpatient individual counseling services and is schedule for an intake assessment at [facility] on --. Client additionally to receive ongoing medication management through PCP; however, encouraged to follow-up with outpatient psychiatric services and has been given referral information for [facility], [facility], and [facility]. - Treatment Progress During Treatment & Response: Client was able to make some progress in improving overall management of symptoms throughout duration of treatment. While in the IOP program, CLient indicated observing an overall decrease in depressive symptoms as well as an increase in ability to manage emotions, specifically that of irritability, during times of increased stress or frustration. This was evidenced by a decrease in CLient DSM Cross-cutting shores for irritability from a 4/4 to a 1/4. Client noted that keeping things in perspective and practicing components of the radical acceptance and cognitive restructuring treatment interventions have been helpful in challenging her negative thoughts. She reports often asking herself Is there anything I can do about this? and Is this worth my time and energy to worry about?. Client additionally identified taking a few seconds to calm down before reacting has helped as well as asking her and mother to support her through identifying when client is focusing on the negative. Client did well to additionally identify the importance of establishing and maintaining healthy boundaries with family in order to prevent taking on others responsibilities or becoming increasingly frustrated and irritable as a result. Client additionally indicates feeling a closer connection with supports and has displayed a decrease in scores associated with emotional distance in relationship AEB DSM Cross-cutting inventory decreasing from a 4/4 to a score of 0/4. Although client is making progress in these areas, she continues to struggle with consistent implementation of healthy internal coping skills and often externalizes or expresses feeling as though others are intentionally taking advantage of her rather than identifying what steps she may be able to take to better manage the situation and prevent escalating. While in IOP program, Client struggled with remaining consistent with attendance and near the end of her admission had several last minute cancellations as well as one no call/ no show. When in attendance she did well to remain engaged in the activity portions and mostly actively engaged in discussion. Overall, Client appeared to respond well to treatment as evidenced by reduction in mental health symptoms and improved use of healthy skills learned. Issues Still to be Addressed:: Client can benefit from continued work on identifying and addressing negative thinking patterns, specifically Client's tendency to personalize or focus on external factors rather than identify what she may be able to change for herself to improve the situation and better regulate her emotions. Client can also benefit from continued work on maintaining healthy communication with supports, especially during times of decreased or irritable mood as she struggles with shutting down and isolating or then lashing out verbally with others. Client could benefit from continued counseling with focus on addressing anxieties related to occupational stressors and transitioning back to work; as Client is scheduled to return to work on 01/29/17, however reports feeling she is not yet ready to do so. She would also be able to benefit from gaining additional skills related to reinforcement of healthy skills and boundaries, as well as identifying stress management strategies in the moment. Discharge Recommendations/Instructions:: Client referred to outpatient counseling services and given referral information for both [facility] and [facility]; however, Client indicates plans to work on a PRN basis following return to work which means she will need to switch to her 's insurance and will need to wait until she is able to do so before setting up an intake appointment. CLient additionally encouraged to follow-up with outpatient psychiatry services and given [facility]. Client indicates she can fill current rx through PCP at this time. Discharge Handout: Complete Discharge Handout with client on aftercare options and continuity of care.
--- NOTE | 2018-01-26 10:18 | BH.SGPN.GN ---
Behaviors/Verbalizations/Mental Status: [Client maintained clear and consistent eye contact, casually dressed - appropriate grooming/hygiene, motor activity within normal limits, speech normal rate and tone, mood euthymic, positive, affect congruent, thoughts linear and logical, no evidence of delusions or hallucinations.] Client Response/Progress/Benefit: [Client was receptive of session and did well to connect with fellow participants as well as engage in both activity and discussion portions of group. CLient indicated that having a strong support system is important for managing mental health symptoms as if one support may not understand or be willing/able to help it could be beneficial to have an alternative support to help cope with whatever may be going on. CLient benefitted from connecting with fellow participants discussing difficulties in finding supports who understand what it is like to be working on managing their mental health symptoms. She displayed progress in working to collaborate with fellow participants and manage stress associated with difficulties in problem solving the activity. CLient to discharge from [facility] tx on this date and recommended continue to work on stress management and effective communication skills. ] Narrative Note: []
--- NOTE | 2018-01-26 11:19 | BH.SGPN.GN ---
Behaviors/Verbalizations/Mental Status: [Client maintained consistent contact, casually dressed in jeans and a sweater, motor activity WNL - at times restless AEB Client drawing or fidgeting with phone, mood euthymic, affect congruent, thoughts linear and logical, no evidence of delusions or hallucinations.] Client Response/Progress/Benefit: []Client responded well to session and remained mostly engaged in the discussion throughout. She did well to work with fellow participants on processing the group activity, at times struggling with attentiveness and appearing distracted by phone. Client benefited from identifying barriers or supports in communicating during the activity, as well as ways this could be applied to communicating mental health needs with supports. Client expressed wanting to do things on her own as a barrier and expressed agreement that communicating personal needs and concerns can aid in improving connection with supports. She is displaying inconsistent progress towards tx goals due to inconsistent attendance and several cancellations. Recommended continued IOP tx to promote change behaviors and continue progress towards tx goals. Narrative Note: []
--- NOTE | 2018-01-26 14:38 | BH.DS_ITS ---
Discharge Summary - Demographics Date of Admission:: 12/12/17 Discharge Date: 01/26/18 Presenting Problems at Admission:: Client is a 37-year-old female referred to the behavioral medicine [facility] by primary care physician Dr. Ortega due to increased symptoms of anxiety and depression. Client reports symptoms have been worsening over the past 6 months resulting in decreased ability to function at baseline and difficulties completing occupational duties. Client currently on FMLA from work. Client attributes increased symptoms stemming from recent stressors including infertility, family discord, and relationship discord with her who she reports has rigid thinking. At time of intake client is endorsing a depressed mood with feelings of sadness, crying spells, anhedonia, decreased energy, and difficulty concentrating. She reports secondary emotions associated including irritability and anger, as well as ruminative anxiety about multiple issues, and difficulty making decisions. Discharge Diagnoses:: Major depressive disorder recurrent severe F 33.2. Anxiety unspecified. Tachycardia. PCOS. Migraines Reason for Discharge:: Client has successfully met treatment goals and no longer meets requirements for [facility] level of care. Client displayed an overall decrease in symptoms of depression and anxiety as evidenced by a reduction in DSM Cross-Cutting Measurement score of upon admission to on discharge date. Client is planning to follow-up with on-going outpatient individual counseling services and is schedule for an intake assessment at [facility] on --. Client additionally to receive ongoing medication management through PCP; however, encouraged to follow-up with outpatient psychiatric services and has been given referral information for [facility], [facility], and [facility]. - Treatment Progress During Treatment & Response: Client was able to make some progress in improving overall management of symptoms throughout duration of treatment. While in the IOP program, CLient indicated observing an overall decrease in depressive symptoms as well as an increase in ability to manage emotions, specifically that of irritability, during times of increased stress or frustration. This was evidenced by a decrease in CLient DSM Cross-cutting shores for irritability from a 4/4 to a 1/4. Client noted that keeping things in perspective and practicing components of the radical acceptance and cognitive restructuring treatment interventions have been helpful in challenging her negative thoughts. She reports often asking herself ?Is there anything I can do about this?? and ?Is this worth my time and energy to worry about??. Client additionally identified taking a few seconds to calm down before reacting has helped as well as asking her and mother to support her through identifying when client is focusing on the negative. Client did well to additionally identify the importance of establishing and maintaining healthy boundaries with family in order to prevent taking on other?s responsibilities or becoming increasingly frustrated and irritable as a result. Client additionally indicates feeling a closer connection with supports and has displayed a decrease in scores associated with emotional distance in relationship AEB DSM Cross-cutting inventory decreasing from a 4/4 to a score of 0/4. Although client is making progress in these areas, she continues to struggle with consistent implementation of healthy internal coping skills and often externalizes or expresses feeling as though others are intentionally taking advantage of her rather than identifying what steps she may be able to take to better manage the situation and prevent escalating. While in IOP program , Client struggled with remaining consistent with attendance and near the end of her admission had several last minute cancellations as well as one no call/ no show. When in attendance she did well to remain engaged in the activity portions and mostly actively engaged in discussion. Overall, Client appeared to respond well to treatment as evidenced by reduction in mental health symptoms and improved use of healthy skills learned. Issues Still to be Addressed:: Client can benefit from continued work on identifying and addressing negative thinking patterns, specifically Client's tendency to personalize or focus on external factors rather than identify what she may be able to change for herself to improve the situation and better regulate her emotions. Client can also benefit from continued work on maintaining healthy communication with supports, especially during times of decreased or irritable mood as she struggles with shutting down and isolating or then lashing out verbally with others. Client could benefit from continued counseling with focus on addressing anxieties related to occupational stressors and transitioning back to work; as Client is scheduled to return to work on 01/29/17, however reports feeling she is not yet ready to do so. She would also be able to benefit from gaining additional skills related to reinforcement of healthy skills and boundaries, as well as identifying stress management strategies in the moment. Discharge Recommendations/Instructions:: Client referred to outpatient counseling services and given referral information for both [facility] and [facility]; however, Client indicates plans to work on a PRN basis following return to work which means she will need to switch to her 's insurance and will need to wait until she is able to do so before setting up an intake appointment. CLient additionally encouraged to follow-up with outpatient psychiatry services and given referral resources to [facility]. Client indicates she can fill current rx through PCP at this time. Discharge Handout: Complete Discharge Handout with client on aftercare options and continuity of care.
== END 2018-01-26 15:25 | disposition home or self-care (01) ==
LOC: BHIOP 09:00
PROVIDERS: Family Provider Internal Medicine; PCP Internal Medicine; Visit Provider Psychiatry & Neurology Psychiatry
DX: F33.2 Major depressive disorder, recurrent severe without psychotic features (principal); F41.9 Anxiety disorder, unspecified; R00.0 Tachycardia, unspecified; E28.2 Polycystic ovarian syndrome; G43.909 Migraine, unspecified, not intractable, without status migrainosus
CPT/HCPCS: H0035; 90834; 90853

== ENCOUNTER → 2018-08-11 08:33 | Outpatient (CLI) | payer OTHER, SELFPAY ==
[2018-08-11 09:57] LABS: BUN 13 mg/dL (7-18); Creatinine, Serum 1.31 mg/dL (0.55-1.02); Glucose 96 mg/dL (74-106); Vitamin D,25 Hydroxy 40.3 ng/mL (29.95-100.01)
[2018-08-11 09:58] LABS: ALB/GLOB Ratio 1.4 RATIO (0.9-2.4); AST(SGOT) 29 U/L (15-37); Alanine Aminotransfer ALT/SGPT 37 U/L (13-56); Albumin, Serum 4.5 g/dL (3.2-5.0); Alkaline Phosphatase 64 U/L (45-117); Anion Gap 4 (5-15); BUN/Creat Ratio 9.9 RATIO (10-20); Calcium,Total 8.9 mg/dL (8.5-10.1); Chloride 106 mmol/L (98-107); Cholesterol 114 mg/dL (200); EST Glomerular Filtration Rate 48 mL/min (>60); Est Glom Filt Rate - Afr Amer 58 mL/min (>60); Free T3 3.4 pg/mL (2.18-3.98); Globulin 3.2 g/dL (2.2-4.2); High Density Lipoprotein 25 mg/dL; Potassium 4.4 mmol/L (3.5-5.1); Protein, Total 7.7 g/dL (6.4-8.2); Sodium Level 138 mmol/L (136-145); T4 Free Direct 1.22 ng/dL (0.76-1.46); Thyroid Stim Hormone (TSH) 1.57 uIU/mL (0.358-3.74); Triglycerides 132 mg/dL; Very Low Density Lipoprotein 26 mg/dL (5-40)
== END ==
PROVIDERS: Family Provider Internal Medicine; PCP Internal Medicine; Referring Provider Internal Medicine; Visit Provider Internal Medicine
DX: I10 Essential (primary) hypertension (principal); E55.9 Vitamin D deficiency, unspecified
CPT/HCPCS: 36415; 80053; 80061; 82306; 84439; 84443; 84481

== ENCOUNTER → 2018-10-01 | Outpatient (CLI) | payer SELFPAY ==
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
== END | disposition home or self-care (01) ==
PROVIDERS: Family Provider Internal Medicine; PCP Internal Medicine; Visit Provider Internal Medicine
DX: M54.2 Cervicalgia (principal); M54.5 Low back pain
CPT/HCPCS: 72040; 72110

== ENCOUNTER → 2021-02-27 09:43 | Outpatient (CLI) | payer OTHER, SELFPAY ==
[2021-02-27 09:55] LABS: Bacteria 0 SEEN /hpf (None Seen); Mucous, Urine 0 SEEN /hpf (<or=2+); Red Blood Cells-Urine 0 SEEN /hpf (0-5); White Blood Cells 0 SEEN /hpf (0-5)
[2021-02-27 10:52] LABS: Absolute Neutrophil Count 4.6 X10^3/uL (2.0-7.7); Basophil# 0.14 X10^3/uL; Basophil% 1.9 % (0-1); Eosinophil# 0.17 X10^3/uL; Eosinophils% 2.3 % (0-5); Hemoglobin 17.8 g/dL (12.0-15.0); Lymphocyte % 22.8 % (19-41); Mean Corp Hgb Conc 32.4 g/dL (32-36); Mean Corpuscular Hgb 27.6 pg (27.0-32.0); Mean Corpuscular Volume 85.1 fL (81-99); Mean Platelet Vol. 11.8 fl (6.2-12.0); Monocyte# 0.87 X10^3/uL; Monocyte% 11.6 % (0-10); NRBC Flagged by Analyzer 0 % (0-5); Neutrophil # 4.57 X10^3/uL (2.7-7.7); Neutrophil % 61.1 % (47-70); Platelet Count 282 K/mm3 (150-450); RBC Distribution Width CV 13.6 % (11.6-14.6); Red Blood Count 6.46 M/mm3 (4.2-5.4); White Blood Count 7.5 K/mm3 (4.4-11.0)
[2021-02-27 11:06] LABS: Color, Urine Yellow (Yellow); Glucose, Dipstick Normal (Normal); Ketone-Dipstick Negative (Negative); Leukocyte Esterase-Dipstick 500 /ul (Negative); Nitrite-Dipstick Negative (Negative); Occult Blood-Urine Negative /ul (Negative); Protein-Dipstick 30 mg/dl (Negative); Specific Gravity, Urine 1.015 (1.002-1.030); Urine Bilirubin Dipstick Negative (Negative); Urine Clarity Clear (Clear); Urine Urobilinogen Normal (Normal); Urine pH 6.5 (5.0 - 8.0)
[2021-02-27 11:12] LABS: Squamous Epithelial Cells - UA 0-5 SEEN /hpf (5-10)
[2021-02-27 11:44] LABS: ALB/GLOB Ratio 1.2 RATIO (0.9-2.4); AST(SGOT) 34 U/L (15-37); Alanine Aminotransfer ALT/SGPT 50 U/L (13-56); Alkaline Phosphatase 58 U/L (45-117); Anion Gap 6 (5-15); BUN 11 mg/dL (7-18); BUN/Creat Ratio 8.2 RATIO (10-20); Calcium,Total 9.1 mg/dL (8.5-10.1); Chloride 103 mmol/L (98-107); Cholesterol 121 mg/dL (200); Creatinine, Serum 1.34 mg/dL (0.55-1.02); EST Glomerular Filtration Rate 46 mL/min (>60); Est Glom Filt Rate - Afr Amer 56 mL/min (>60); Globulin 3.4 g/dL (2.2-4.2); Glucose 89 mg/dL (74-106); High Density Lipoprotein 27 mg/dL; Potassium 4.3 mmol/L (3.5-5.1); Protein, Total 7.4 g/dL (6.4-8.2); Sodium Level 138 mmol/L (136-145); Thyroid Stim Hormone (TSH) 1.46 uIU/mL (0.358-3.74); Triglycerides 149 mg/dL; Very Low Density Lipoprotein 30 mg/dL (5-40)
[2021-02-27 11:51] LABS: Microalbumin,Random Urine 18.5 mg/L (NO RANGE EST.); Microalbumin:Creatinine Ratio 7.2 mg/g CRE (<30 mg/g CRE)
== END ==
PROVIDERS: PCP Internal Medicine; Visit Provider Internal Medicine
DX: I10 Essential (primary) hypertension (principal); E55.9 Vitamin D deficiency, unspecified; E78.5 Hyperlipidemia, unspecified; Z13.29 Encounter for screening for other suspected endocrine disorder
CPT/HCPCS: 36415; 80053; 80061; 81001; 82043; 82306; 82570; 84443; 85025

== ENCOUNTER → 2021-03-31 08:53 | Outpatient (CLI) | payer OTHER, SELFPAY ==
--- NOTE | 2021-03-31 08:57 | RAD_ITS ---
STUDY: X-RAY CHEST REASON FOR EXAM: Female, 40 years old. COUGH TECHNIQUE: PA and lateral views of the chest. COMPARISON: Comparison is made with prior study dated 05/22/2014. FINDINGS: There is elevation of the right hemidiaphragm. The lungs are clear. There is no demonstrated pleural abnormality. Normal size heart. Normal mediastinum and mike. Normal visualized pulmonary arteries. Normal visualized aortic arch and descending thoracic aorta. Normal visualized thoracic spine. Normal visualized ribs, clavicles, and shoulders. There is no demonstrated abnormality of the visualized soft tissue structures of the upper abdomen. RAD/Chest PA and Lateral IMPRESSION: Normal x-ray examination of the chest. Electronically Signed: Errol Martinez MD at 9:33 EST , Service support ,
== END ==
PROVIDERS: PCP Internal Medicine; Referring Provider Nurse Practitioner; Visit Provider Nurse Practitioner
DX: R05.9 Cough, unspecified (principal)
CPT/HCPCS: 71046; 87633

== ENCOUNTER 2021-08-02 11:53 | Outpatient (CLI) | payer BC, SELFPAY ==
[2021-08-02 13:54] LABS: Progesterone Level 0.64 ng/mL (See Comment)
[2021-08-02 14:00] LABS: Estradiol 91.6 pg/mL; Follicle Stimulating Hormone < 0.2 mIU/mL; Luteinizing Hormone < 0.2 mIU/mL; Prolactin 10.3 ng/mL
[2021-08-02 14:08] LABS: Anion Gap 9 (5-15); BUN 13 mg/dL (7-18); BUN/Creat Ratio 9.8 RATIO (10-20); Calcium,Total 9.5 mg/dL (8.5-10.1); Chloride 102 mmol/L (98-107); Creatinine, Serum 1.33 mg/dL (0.55-1.02); EST Glomerular Filtration Rate 47 mL/min (>60); Est Glom Filt Rate - Afr Amer 57 mL/min (>60); Glucose 86 mg/dL (74-106); Potassium 4.3 mmol/L (3.5-5.1); Sodium Level 135 mmol/L (136-145)
[2021-08-06 10:33] LABS: Testosterone Free 34.1 pg/mL (0.0-4.2)
[2021-08-06 15:43] LABS: HPV APTIMA, High Risk Negative (Negative)
[2021-08-09 21:09] LABS: 17-Hydroxyprogesterone 127 ng/dL (.)
== END 2021-08-02 23:59 | disposition home or self-care (01) ==
PROVIDERS: PCP Internal Medicine; Visit Provider Student in an Organized Health Care Education/Training Program
DX: Z12.4 Encounter for screening for malignant neoplasm of cervix (principal); N28.9 Disorder of kidney and ureter, unspecified; N91.1 Secondary amenorrhea
CPT/HCPCS: 36415; 80048; 82627; 82670; 83001; 83002; 83498; 84144; 84146; 84402; 87624; 88175; 82626; G0145

== ENCOUNTER → 2021-09-06 | Outpatient (CLI) | payer BC, SELFPAY ==
[2021-09-06 15:23] LABS: Absolute Lymphocyte Count 1.81 X10^3/uL (0.83-4.51); Absolute Neutrophil Count 5.6 X10^3/uL (2.0-7.7); Basophil# 0.09 X10^3/uL; Eosinophil# 0.12 X10^3/uL; Eosinophils% 1.4 % (0-5); Hematocrit 53.8 % (37-47); Lymphocyte # 1.81 X10^3/ul (0.83-4.51); Lymphocyte % 20.9 % (19-41); Mean Corp Hgb Conc 33.5 g/dL (32-36); Mean Corpuscular Hgb 28.6 pg (27.0-32.0); Mean Corpuscular Volume 85.5 fL (81-99); Mean Platelet Vol. 12.5 fl (6.2-12.0); Monocyte# 1.04 X10^3/uL; NRBC Flagged by Analyzer 0 % (0-5); Neutrophil # 5.59 X10^3/uL (2.7-7.7); Neutrophil % 64.5 % (47-70); Platelet Count 266 K/mm3 (150-450); RBC Distribution Width SD 40.6 fl (35.1-43.9); Red Blood Count 6.29 M/mm3 (4.2-5.4); White Blood Count 8.7 K/mm3 (4.4-11.0)
[2021-09-06 15:35] LABS: ALB/GLOB Ratio 1.3 RATIO (0.9-2.4); AST(SGOT) 35 U/L (15-37); Alanine Aminotransfer ALT/SGPT 58 U/L (13-56); Albumin, Serum 4.3 g/dL (3.2-5.0); Alkaline Phosphatase 61 U/L (45-117); Anion Gap 5 (5-15); BUN 10 mg/dL (7-18); BUN/Creat Ratio 8.6 RATIO (10-20); Calcium,Total 9.2 mg/dL (8.5-10.1); Chloride 103 mmol/L (98-107); Creatinine, Serum 1.16 mg/dL (0.55-1.02); EST Glomerular Filtration Rate 55 mL/min (>60); Est Glom Filt Rate - Afr Amer 66 mL/min (>60); Globulin 3.2 g/dL (2.2-4.2); Glucose 88 mg/dL (74-106); Potassium 3.9 mmol/L (3.5-5.1); Protein, Total 7.5 g/dL (6.4-8.2); Sodium Level 137 mmol/L (136-145)
== END | disposition home or self-care (01) ==
LOC: MTLAB 13:00
PROVIDERS: PCP Internal Medicine; Referring Provider Internal Medicine; Visit Provider Internal Medicine
DX: Z01.818 Encounter for other preprocedural examination (principal)
CPT/HCPCS: 36415; 80053; 85025

== ENCOUNTER → 2021-09-09 | Outpatient (CLI) | payer BC, SELFPAY | END | disposition home or self-care (01) | LOC: BIMLAB 16:04 | PROVIDERS: PCP Internal Medicine; Referring Provider Internal Medicine Endocrinology, Diabetes & Metabolism; Visit Provider Internal Medicine Endocrinology, Diabetes & Metabolism | DX: E28.8 Other ovarian dysfunction (principal) | CPT/HCPCS: 36415; 84403 ==

== ENCOUNTER 2021-09-13 15:14 | Emergency (ER) | payer BC, SELFPAY ==
[2021-09-13 15:15] VITALS: BP 160/127; PULSE 107; RESP 16; TEMP 36.6; O2SAT 98; BMI 34.7
[2021-09-13 15:22] VITALS: BP 149/117; PULSE 98; RESP 16; O2SAT 96
[2021-09-13 15:30] VITALS: BP 155/111; PULSE 104
[2021-09-13 15:37] VITALS: O2SAT 98
--- NOTE | 2021-09-13 15:40 | RAD_ITS ---
STUDY: X-RAY CHEST REASON FOR EXAM: Female, 41 years old. Chest pain TECHNIQUE: Single AP portable view of the chest. COMPARISON: Comparison is made with prior study of 03/31/2021. FINDINGS: EKG electrodes are seen. Stable elevation of the right hemidiaphragm. The lungs are clear. There is no demonstrated pleural abnormality. Normal size heart. Normal mediastinum and mike. Normal visualized pulmonary arteries. Normal visualized aortic arch and descending thoracic aorta. Normal visualized thoracic spine. Normal visualized ribs, clavicles, and shoulders. There is no demonstrated abnormality of the visualized soft tissue structures of the upper abdomen. RAD/Chest 1 View (Portable) IMPRESSION: Normal x-ray examination of the chest. Electronically Signed: Errol Martinez MD at 15:55 EDT ,
--- NOTE | 2021-09-13 15:45 | EKG12_ITS ---
Test Reason : Blood Pressure : / mmHG Vent. Rate : 094 BPM Atrial Rate : 094 BPM P-R Int : 138 ms QRS Dur : 086 ms QT Int : 334 ms P-R-T Axes : 031 011 -17 degrees QTc Int : 417 ms Normal sinus rhythm Nonspecific ST and T wave abnormality Abnormal ECG Confirmed by GERMÁN YEH, STANLEY ([id number]), graphic editor FRITZ WAGNER ([id number]) on 09/15/2021 9:40:51 AM Referred By: ANDRZEJ Confirmed By:STANLEY DUNLAP MD
[2021-09-13 15:51] LABS: Absolute Lymphocyte Count 2.22 X10^3/uL (0.83-4.51); Absolute Neutrophil Count 5.8 X10^3/uL (2.0-7.7); Basophil# 0.09 X10^3/uL; Eosinophil# 0.08 X10^3/uL; Eosinophils% 0.9 % (0-5); Hematocrit 54.4 % (37-47); Lymphocyte # 2.22 X10^3/ul (0.83-4.51); Lymphocyte % 24.5 % (19-41); Mean Corp Hgb Conc 33.6 g/dL (32-36); Mean Corpuscular Hgb 28.9 pg (27.0-32.0); Mean Corpuscular Volume 85.9 fL (81-99); Monocyte# 0.84 X10^3/uL; Monocyte% 9.3 % (0-10); NRBC Flagged by Analyzer 0 % (0-5); Neutrophil % 64.1 % (47-70); Platelet Count 251 K/mm3 (150-450); RBC Distribution Width CV 12.8 % (11.6-14.6); RBC Distribution Width SD 40.2 fl (35.1-43.9); Red Blood Count 6.33 M/mm3 (4.2-5.4); White Blood Count 9.1 K/mm3 (4.4-11.0)
[2021-09-13 15:53] LABS: Hemoglobin 18.3 g/dL (12.0-15.0)
[2021-09-13 16:00] VITALS: BP 127/89; PULSE 106; O2SAT 97
[2021-09-13 16:07] LABS: Anion Gap 5 (5-15); BUN 9 mg/dL (7-18); BUN/Creat Ratio 7.2 RATIO (10-20); Calcium,Total 9.7 mg/dL (8.5-10.1); Chloride 101 mmol/L (98-107); Creatinine, Serum 1.25 mg/dL (0.55-1.02); EST Glomerular Filtration Rate 50 mL/min (>60); Est Glom Filt Rate - Afr Amer 61 mL/min (>60); Glucose 104 mg/dL (74-106); Potassium 3.5 mmol/L (3.5-5.1); Sodium Level 136 mmol/L (136-145); Troponin-I HS (w/2H Reflex) < 3 pg/mL (3.0-54.0)
--- NOTE | 2021-09-13 16:20 | EDS_ITS ---
HPI History of Present Illness Chief Complaint: Chest Pain Detail of Chief Complaint: Left-sided chest pain Informant: patient Onset/Context/Timing Onset: Today and Hours (Onset 1130 while sitting at desk) Activity at onset: sudden Timing: Continuous Quality: Positive for Aching Location: Left Parasternal (Initially above the left breast and under the left breast) Current Severity: Mild Maximum Severity: Moderate Worsened By: Nothing Relieved By: Nothing Associated Symptoms: Negative for Nausea, Vomiting, Diaphoresis, Dyspnea, Cough, Fever, Lightheadedness, Acid Reflux and Palpitations Narrative Prior Similar Symptoms: Yes, With Prior NM, With Prior Angina and With Prior PE CVD Risk Factors: Negative for Hypertension, Diabetes, Hypercholesterolemia and Family History 1' </=55 PE Risk Factors: Negative for Recent Travel/Surgery, Recent Immobilization, Prior DVT or PE, Cancer and OCP + Smoking + >/=35 TAD Risk Factors: Negative for Marfan's Syndrome, Hypertension and Family History PFSH PFS Medical History Amenorrhea GERD (gastroesophageal reflux disease) Hirsutism HTN (hypertension) Hyperandrogenism MDD (major depressive disorder), recurrent episode, moderate PCOS (polycystic ovarian syndrome) Polycythemia Tachycardia Home Medications omeprazole 40 mg PO DAILY 06/09/16 [History Last Taken Unknown] bupropion HCl 150 mg PO DAILY 01/26/18 [History Last Taken Unknown] buspirone 15 mg tablet 15 mg PO DAILY 09/09/21 [History Last Taken Unknown] fluoxetine 40 mg capsule 40 mg PO DAILY cap 09/09/21 [History Last Taken Unknown] hydroxychloroquine 200 mg tablet 200 mg PO BID 09/09/21 [History Last Taken Unknown] metoprolol succinate 100 mg tablet,extended release 24 hr 100 mg PO DAILY tab 09/09/21 [History Last Taken Unknown] spironolactone 50 mg tablet 50 mg PO BID #180 tab 09/09/21 [Rx Last Taken Unknow n] diphenhydramine HCl [Benadryl] 50 mg PO QHS 09/13/21 [History Last Taken Unknown] Allergy/AdvReac Type Severity Reaction Status Date / Time cefuroxime [From Ceftin] Allergy Rash Verified 09/13/21 15:16 cephalexin monohydrate Allergy Rash Verified 09/13/21 15:16 [From Keflex] amoxicillin [From Augmentin] AdvReac Unknown Verified 09/13/21 15:16 clavulanic acid AdvReac Unknown Verified 09/13/21 15:16 [From Augmentin] Family History Other Bipolar 2 disorder, major depressive episode Social History (Updated 09/13/21 @ 16:[address] Fritz Rivera MD) household members: spouse Smoking Status: Never smoker substance use type: does not use ROS ROS ED Constitutional Constitutional ED: Denies chills, fever(s), subjective, sweats or weight loss Eyes Eyes: Denies blurry vision, change in vision or diplopia ENT ENT ED: Denies ear pain, rhinorrhea or sore throat Cardiovascular Cardiovascular: Reports as per HPI, chest pain and palpitations; Denies orthopnea, paroxysmal nocturnal dyspnea or racing heartbeat Respiratory/Chest Respiratory/Chest: Denies cough, dyspnea, dyspnea on exertion, orthopnea, paroxysmal nocturnal dyspnea or sputum Gastrointestinal Gastrointestinal: Denies abdominal pain, constipation, diarrhea, melena, nausea or vomiting Genitourinary Genitourinary ED: Denies dysuria, hematuria or urinary frequency Musculoskeletal Musculoskeletal: Denies arthralgias, back pain or myalgias Neurologic Neurologic: Denies paresthesias or weakness Psychiatric Psychiatric: Denies anxiety or depression Hematologic/Lymphatic Hematologic/Lymphatic: Denies easy bleeding or easy bruising EXAM Physical Exam Const Vital Signs: 09/13/21 15:15 09/13/21 15:22 09/13/21 15:37 Temperature 98 F Temperature Source Temporal Pulse Rate 107 H 98 Respiratory Rate 16 16 Respiratory Effort Normal Non-Labored Blood Pressure 160/127 H 149/117 H Blood Pressure Mean 138 127 Pulse Ox 98 96 98 Oxygen Delivery Method Room Air Room Air Room Air Positive well nourished, well developed and obese General Appearance ED: well developed and NAD; Negative for pallor Nutritional Appearance: obese HEENT Reports TM's clear and moist mucous membranes HEENT Narrative: Uvula midline. No erythema or exudate. No angioedema. normocephalic and atraumatic Tympanic Membrane ED: Yes TM's clear Eyes PERRL and EOMs intact bilaterally General Eye ED: Yes pale conjunctiva; Negative for scleral icterus Neck no lymphadenopathy, supple and no JVD Chest Wall inspection of chest normal and palpation of chest normal Resp normal respiratory effort and clear to auscultation bilaterally Effort and Inspection: respiratory distress Cardio regular rate, regular rhythm, S1 normal heart sound, S2 normal heart sound and no murmurs GI normal to inspection, nondistended, normoactive bowel sounds, soft to palpation, non-tender and non-distended Back/Spine no CVA tenderness and no thoracic nor lumbar tenderness Extremity normal to inspection Extremity Narrative: There is no asymmetry, swelling, discoloration, leg vein distention, palpable cords or tenderness along the distribution of the deep venous system. General Extremety ED: Negative for edema, pulses abnormal or tenderness General Extremity: Negative for edema or pulses abnormal Neuro oriented x3, CN's II-XII intact bilaterally and no sensory deficits noted Sensorium / Orientation: awake and alert Motor Exam: strength 5/5 throughout Psych mental status grossly normal Skin no rashes or lesions noted and no wounds General Skin Exam: Negative for jaundice or pallor Heart Score History: Slightly/Non-Suspicious ECG: Normal Age: </= 45 years Risk Factors: No Risk Factors Troponin: </= Normal Limit Score: 0 MDM MDM MDM Narrative Medical decision making narrative: Chest pain. She does have history of polycythemia vera due to elevated testosterone. She has no history of PE or DVT. She does have a rapid heart rate due to paroxysmal atrial tachycardia and frequent PACs since she was a child. She is on metoprolol. She also has history of polycystic ovarian disease. Her transfer specialist believes the elevated testosterone is due to the polycystic ovarian disease. This is also the cause of her elevated hemoglobin. Lab Data Attestation: I reviewed the patient's lab results. Lab results narrative: With a troponin less than 3 negative predictive value is 100% regarding cardiac chest etiology. Creatinine slightly elevated. Creatinine is been elevated in the past. Labs: Laboratory Results - last 24 hr 09/13/21 09/13/21 15:20 15:20 WBC 9.1 RBC 6.33 H Hgb 18.3 H* Hct 54.4 H MCV 85.9 MCH 28.9 MCHC 33.6 RDW Std Deviation 40.2 RDW Coeff of Tiana 12.8 Plt Count 251 MPV 12.0 Immature Gran % (Auto) 0.200 Neut % (Auto) 64.1 Lymph % (Auto) 24.5 [place] % (Auto) 9.3 Eos % (Auto) 0.9 Baso % (Auto) 1.0 Absolute Neuts (auto) 5.8 Absolute Lymphs (auto) 2.22 Nucleated RBC % 0 Diff Path Review May foll Sodium 136 Potassium 3.5 Chloride 101 Carbon Dioxide 30.0 Anion Gap 5 BUN 9 Creatinine 1.25 H Estim Creat Clear Calc 61.90 Est GFR (MDRD) Af Amer 61 Est GFR (MDRD) Non-Af 50 L BUN/Creatinine Ratio 7.2 L Glucose 104 Calcium 9.7 Troponin I High Sens < 3 L Radiography Chest X-Ray - ED: 1 View, Read by ED Physician (Interpreted by me at 1547), Unchanged, Heart, Lungs, Mediastinum, Bony Structures and No Acute Disease Diagnostic Testing: Clinical Impression(s) from Imaging Studies Chest X-Ray 09/13/21 15:40 IMPRESSION: Normal x-ray examination of the chest. Electronically Signed: Errol Martinez MD at 15:55 EDT , EKG Initial EKG: Attestation: I personally reviewed and interpreted this EKG as follows: Interpretation: Sinus Rhythm (Ventricular rate is 94. There are frequent premature atrial and ventricular beats. Parables 138 ms. Cures duration 86 ms. QT duration 0 to 34 ms. [place] is normal.) Discharge Plan Triage Chief Complaint: Chest Pain ED Provider: Fritz Rivera Dx/Rx/DC Orders Clinical Impression: Left-sided chest pain, Acquired polycythemia vera, Renal insufficiency, Elevated testosterone level in female Instructions: ED Chest Pain, Noncardiac, ED Renal Insufficiency, Polycythemia Vera Prescriptions: No Action hydroxychloroquine 200 mg tablet 200 mg PO BID RF: 0 buspirone 15 mg tablet 15 mg PO DAILY RF: 0 metoprolol succinate 100 mg tablet extended release 24 hr 100 mg PO DAILY RF: 0 fluoxetine 40 mg capsule 40 mg PO DAILY RF: 0 spironolactone 50 mg tablet 50 mg PO BID Qty: 180 RF: 1 omeprazole 20 MG capsule 40 mg PO DAILY RF: 0 diphenhydramine HCl [Benadryl] 50 mg Capsule 50 mg PO QHS RF: 0 bupropion HCl 150 MG tablet extended release 24 hr 150 mg PO DAILY RF: 0 Primary Care Provider: Trinidad Antunez Referrals: Trinidad Antunez DO [Primary Care Provider] - Keep [facility] appointment Sebastián Head MD [STAFF PHYSICIAN] - Keep [facility] appointment Disposition Disposition: Home, Self Care
[2021-09-13 16:30] VITALS: BP 127/87; PULSE 102; RESP 12; O2SAT 95
[2021-09-13 17:43] LABS: Reflex Troponin-HS? (from REC) Y
[2021-09-15 13:14] LABS: Pathologist Review Reviewed
== END 2021-09-13 16:44 | disposition home or self-care (01) ==
PROVIDERS: Emergency Provider Emergency Medicine; PCP Internal Medicine; Visit Provider Emergency Medicine
DX: R07.9 Chest pain, unspecified (principal); D45 Polycythemia vera; N28.9 Disorder of kidney and ureter, unspecified; E28.2 Polycystic ovarian syndrome; I10 Essential (primary) hypertension; K21.9 Gastro-esophageal reflux disease without esophagitis; Z79.899 Other long term (current) drug therapy
CPT/HCPCS: 71045; 80048; 84484; 85025; 93005; 99285; A4216

== ENCOUNTER → 2022-01-14 | Outpatient (CLI) | payer BC, SELFPAY ==
--- NOTE | 2022-01-14 12:16 | BI_ITS ---
MAMMOGRAPHY - BILATERAL SCREENING REASON FOR EXAM: Female, 41 years old. Routine annual screening examination. PERTINENT HISTORY: Grandmother with breast cancer. TECHNIQUE: Digital bilateral breast andrews (3D mammographic acquisition) in the CC and MLO projections. 2-D mediolateral oblique (MLO) and craniocaudad (CC) views of both breasts were obtained. CAD: Full Field Digital Mammography with Computer Added Detection was performed. COMPARISON: None. Baseline examination. FINDINGS: Breast Composition: There are scattered areas of fibroglandular density. There is a 9 mm x 7.7 mm well-defined nodular density in the central medial aspect of the left breast. Correlation with ultrasound is recommended. Benign appearing axillary lymph nodes. There are no dominant masses or suspicious calcifications. No other significant abnormalities are identified. BI/SCREENING MAMM (CAD), BILAT IMPRESSION: 9 mm x 7.7 mm well-defined nodule in the central slightly medial aspect of the left breast. Correlation with ultrasound is recommended. ASSESSMENT CATEGORY: BIRADS Category 0: Incomplete. Need additional imaging evaluation. A letter regarding these results will be sent to the patient by the facility within 30 days. Approximately 10% of breast cancers are not detected by mammography. A normal mammogram should not delay biopsy of a clinically suspicious abnormality. [id number] Electronically Signed: Errol Martinez MD at 13:42 EDT ,
== END | disposition home or self-care (01) ==
LOC: OPBI 12:14
PROVIDERS: PCP Internal Medicine; Visit Provider Student in an Organized Health Care Education/Training Program
DX: Z12.31 Encounter for screening mammogram for malignant neoplasm of breast (principal)
CPT/HCPCS: 77067

== ENCOUNTER → 2022-01-19 | Outpatient (CLI) | payer BC, SELFPAY ==
--- NOTE | 2022-01-19 10:56 | US_ITS ---
STUDY: ULTRASOUND BREAST - LEFT REASON FOR EXAM: Female, 41 years old. Abnormal screening mammogram. TECHNIQUE: Axial and longitudinal images of the LEFT breast were performed with a high resolution ultrasound transducer. # OF IMAGES: 15 COMPARISON: Comparison is made with prior mammogram dated 01/14/2022. FINDINGS: LEFT Breast: The mammographic abnormality corresponds to a 1 cm x 0.6 cm x 0.3 cm cyst at the 10 o''clock position of the breast at 3 cm from the nipple. US/Breast Limited Unilateral IMPRESSION: The mammographic abnormality corresponds to a 1 cm x 0.6 cm x 0.3 cm cyst at the 3 o''clock position breast at 3 cm from nipple. ASSESSMENT CATEGORY: BIRADS Category 2: Benign. A letter regarding these results will be sent to the patient by the facility within 30 days. Electronically Signed: Errol Martinez MD at 12:31 EDT ,
== END | disposition home or self-care (01) ==
LOC: OPUS 10:54
PROVIDERS: PCP Internal Medicine; Visit Provider Student in an Organized Health Care Education/Training Program
DX: R92.8 Other abnormal and inconclusive findings on diagnostic imaging of breast (principal)
CPT/HCPCS: 76642

== ENCOUNTER → 2023-04-22 | Outpatient (CLI) | payer BC, SELFPAY ==
[2023-04-22 09:10] LABS: Bacteria 0 SEEN /hpf (None Seen); Mucous, Urine 0 SEEN /hpf (<or=2+); Red Blood Cells-Urine 0 SEEN /hpf (0-5)
[2023-04-22 10:03] LABS: Absolute Lymphocyte Count 1.46 X10^3/uL (0.83-4.51); Absolute Neutrophil Count 3.6 X10^3/uL (2.0-7.7); Basophil% 1.7 % (0-1); Color, Urine Yellow (Yellow); Eosinophils% 1.7 % (0-5); Glucose, Dipstick Normal (Normal); Hematocrit 44.1 % (37-47); Hemoglobin 14.9 g/dL (12.0-15.0); Ketone-Dipstick Negative (Negative); Leukocyte Esterase-Dipstick 25 /ul (Negative); Lymphocyte # 1.46 X10^3/ul (0.83-4.51); Mean Corp Hgb Conc 33.8 g/dL (32-36); Mean Corpuscular Hgb 29.6 pg (27.0-32.0); Mean Corpuscular Volume 87.7 fL (81-99); Mean Platelet Vol. 10.6 fl (6.2-12.0); Monocyte# 0.53 X10^3/uL; Monocyte% 9.1 % (0-10); NRBC Flagged by Analyzer 0 % (0-5); Neutrophil # 3.64 X10^3/uL (2.7-7.7); Neutrophil % 62.3 % (47-70); Nitrite-Dipstick Negative (Negative); Occult Blood-Urine 10 /ul (Negative); Platelet Count 347 K/mm3 (150-450); Protein-Dipstick 15 mg/dl (Negative); RBC Distribution Width CV 11.7 % (11.6-14.6); RBC Distribution Width SD 37.2 fl (35.1-43.9); Red Blood Count 5.03 M/mm3 (4.2-5.4); Urine Clarity Clear (Clear); Urine Urobilinogen Normal (Normal); Urine pH 6.5 (5.0 - 8.0); White Blood Count 5.8 K/mm3 (4.4-11.0)
[2023-04-22 10:18] LABS: Urine Bilirubin Dipstick 1 mg/dL (Negative)
[2023-04-22 10:20] LABS: Squamous Epithelial Cells - UA 5-10 SEEN /hpf (5-10); White Blood Cells 0-5 SEEN /hpf (0-5)
[2023-04-22 10:32] LABS: ALB/GLOB Ratio 1.2 RATIO (0.9-2.4); AST(SGOT) 18 U/L (15-37); Alanine Aminotransfer ALT/SGPT 29 U/L (13-56); Albumin, Serum 4.1 g/dL (3.2-5.0); Alkaline Phosphatase 63 U/L (45-117); Anion Gap 3 (5-15); BUN 11 mg/dL (7-18); BUN/Creat Ratio 9.7 RATIO (10-20); Calcium,Total 9.2 mg/dL (8.5-10.1); Chloride 106 mmol/L (98-107); Cholesterol 152 mg/dL (200); Creatinine, Serum 1.13 mg/dL (0.55-1.02); EST Glomerular Filtration Rate 56 mL/min (>60); Est Glom Filt Rate - Afr Amer 68 mL/min (>60); Globulin 3.3 g/dL (2.2-4.2); Glucose 89 mg/dL (74-106); High Density Lipoprotein 33 mg/dL; Protein, Total 7.4 g/dL (6.4-8.2); Sodium Level 138 mmol/L (136-145); Thyroid Stim Hormone (TSH) 0.94 uIU/mL (0.358-3.74); Triglycerides 133 mg/dL; Very Low Density Lipoprotein 27 mg/dL (5-40)
[2023-04-22 11:53] LABS: Microalbumin,Random Urine 19.3 mg/L (NO RANGE EST.); Microalbumin:Creatinine Ratio 7.6 mg/g CRE (<30 mg/g CRE)
[2023-04-24 08:50] LABS: Vitamin D,25 Hydroxy 40.3 ng/mL
== END | disposition home or self-care (01) ==
LOC: LAB 08:58
PROVIDERS: PCP Internal Medicine; Referring Provider Internal Medicine; Visit Provider Internal Medicine
DX: I10 Essential (primary) hypertension (principal); E78.5 Hyperlipidemia, unspecified; E55.9 Vitamin D deficiency, unspecified; R00.0 Tachycardia, unspecified
CPT/HCPCS: 36415; 80053; 80061; 81001; 82043; 82306; 82570; 84443; 85025